=== PATIENT | male | born 1945 | race Caucasian/White ===

== ENCOUNTER 2019-03-22 10:27 | Inpatient (IN) ==
[~2019-03-22 10:27] MED LIST: ETOMIDATE 2 MG/ML 20 ML VIAL IV ONE; fentaNYL citrate 100 MCG/2 ML CARP IV ONE
--- OUTSIDE RECORDS SUMMARY | 2019-03-22 17:40 | External Medical Summary | Continuity of Care Document ---
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) Hyponatremia (276.1) (E87.1) Hypokalemia (276.8) (E87.6) Abnormal glucose level (790.29) (R73.09) Degenerative joint disease (715.90) (M19.90) Mixed hyperlipidemia (272.2) (E78.2) CHF (congestive heart failure) (428.0) (I50.9) Chronic obstructive lung disease (496) (J44.9) Allergies and Adverse Reactions No Known Drug Allergies (Allergy) Medications Incruse Ellipta 62.5 MCG/INH Inhalation Aerosol Powder Breath Activated; INHALE ONE PUFF BY MOUTH ONCE DAILY Carlton Royal Start: 12-Feb-2019 Quantity: 1 30 Inhaler Pack Refills: 3 Ecotrin Low Strength 81 MG Oral Tablet Delayed Release; TAKE 1 TABLET DAILY. Refills: 0 Magnesium Oxide 400 MG Oral Capsule; TAKE DIRECTED. Refills: 0 Metoprolol Tartrate 50 MG Oral Tablet; 3 daily Refills: 0 dilTIAZem HCl ER 120 MG Oral Capsule Ext ended Release 12 Hour; TAKE 1 CAPSULE EVERY DAILY. Refills: 0 Fish Oil 1000 MG Oral Capsule; TAKE 2 CAPSULE DAILY. Quantity: 60 Refills: 0 Furosemide 40 MG Oral Tablet; TAKE 2 TABLETS DAILY. Quantity: 180 Refills: 3 Digoxin 125 MCG Oral Tablet; TAKE 1 TABLET DAILY. Quantity: 30 Refills: 5 Colace 100 MG Oral Capsule Refills: 0 Potassium 99 MG Oral Tablet Refills: 0 Procedures Procedures not documented Immunizations Immunizations not documented Family History Unknown Family Member Family history of malignant neoplasm of Status: Active Comments: Family History esophagus (V16.0) (Z80.0) Family history of coronary artery disease Status: Active Comments: Family History (V17.3) (Z82.49) Family history of MVA (motor vehicle Status: Active Com ments: Family History accident) (E819.9) (V89.2XXA) Father Family history of malignant neoplasm of esophagus (V16 .0) (Z80.0) Status: Active Family history of coronary artery disease (V17.3) (Z82.49) S tatus: Active Sister Family history of coronary artery disease (V17.3) (Z82.49) S tatus: Active Brother Family history of MVA (motor vehicle accident) (E819.9 ) (V89.2XXA) Status: Active Social History - Smoking Status Former smoker Plan of Treatment Planned Observations Planned Goals not documented Results No Known Results Results not documented Encounters Appointment; Smione Royal M.D. 14-Feb-2018 10:45 Encounter Diagnosis: Problem not documented Appointment; Simone Royal M.D. 22-Nov-2017 10:15 Encounter Diagnosis: Problem not documented Appointment; Simone Royal M.D. 16-Aug-2017 10:15 Encounter Diagnosis: Problem not documented Appointment; Simone Royal M.D. 05-Jul-2017 9:15 Encounter Diagnosis: Problem not documented
[2019-03-22] MEDS ORDERED: ICU PROTOCOL FOR HYPERGLYCEMIA PRN (18:33)
[2019-03-22] MEDS ORDERED: PATIENT'S ALLERGY INFO NEEDS ENTERED SCH (18:45)
[2019-03-22] MEDS ORDERED: PATIENT'S HEIGHT AND/OR WEIGHT NEEDED SCH (18:45)
--- NOTE | 2019-03-22 18:49 | History & Physical Report ---
Date of Service March 22, 2019 Assessment & Plan (1) Community acquired pneumonia: Bilateral. Treated with Rocephin and azithromycin from March 19 through today. Then switched to cefepime and vancomycin. Will repeat sputum culture if sputum is produced. Sputum culture at [facility] on March 19 revealed moderate gram-positive cocci in pairs, chains, clusters. Present on Admission?: Yes (2) Acute on chronic respiratory failure: He is requiring high flow oxygen at this time. He currently is on BiPAP 10/5 at 100% oxygen flow and has a saturation of 92%. Consult intensive care/pulmonary medicine. Hold Eliquis in the event that bronchoscopy with biopsy is necessary. Present on Admission?: Yes (3) Atrial fibrillation with RVR: Cardioverted after DERICK at [facility] and now in normal sinus rhythm. Currently on diltiazem and metoprolol to maintain normal sinus rhythm. Present on Admission?: Yes (4) Congestive heart failure: Doubt congestive heart failure at this time. He has received intravenous Lasix and may in fact be volume depleted. Urine is concentrated and he is borderline tachycardic. Judicious IV fluids will be administered and Lasix discontinued at this time Present on Admission?: Yes (5) Hypertension: Prior to hospitalization he was treated at home with amlodipine, metoprolol, diltiazem (6) Interstitial lung disease: Past history of comanaging and smoking. Diffuse interstitial lung disease noted on CT scan (7) COPD exacerbation: Continue with nebulizer treatments and intravenous Solu-Medrol (8) DVT prophylaxis: Lovenox subcu. Hold Eliquis History of Present Illness Chief Complaint: Nonproductive cough, shortness of breath, palpitations Primary Care Provider: KRISTIN Heart 73-year-old male with COPD, chronic respiratory failure, pulmonary fibrosis who was hospitalized at [facility] on December 20 with what appears to be bilateral pneumonia, acute on chronic respiratory failure, atrial fibrillation with rapid ventricular rate. He was cardioverted after DERICK procedure and is now in normal sinus rhythm. He is taking oral diltiazem and metoprolol to maintain normal sinus rhythm. He has been placed on Eliquis which will be discontinued at this time since he may need bronchoscopy with biopsy. Chest CT scan today reveals diffuse emphysema with diffuse alveolar opacities and mediastinal adenopathy. There is no PE. He was treated at [facility] with Rocephin and azithromycin then switched today to cefepime and vancomycin. Sputum culture done at [facility] on March 19 reveals moderate gram-positive cocci in pairs, chains, clusters. Blood cultures are negative. ABG done yesterday reveals pH 7.46, PCO2 42, PO2 58, bicarb 29 on 100% oxygen. He currently is on BiPAP 10/5 at 100% oxygen flow rate with 92% oxygen saturation. Incident Engineer consultation and infectious disease consultation requested Past Med/Surg History Medical History DVT prophylaxis COPD exacerbation (Acute) Interstitial lung disease (Chronic) Hypertension (Chronic) Congestive heart failure (Acute) Atrial fibrillation with RVR (Acute) Acute on chronic respiratory failure (Acute) Community acquired pneumonia (Acute) Review of Systems Review of Systems: All systems reviewed & are unremarkable except as noted in HPI & below Respiratory: + cough, + dyspnea and + wheezing Cardiovascular: + palpitations Physical Exam Constitutional: WD/WN, vitals as above BiPAP in place Eyes: PERRL, conjunctivae normal, anicteric sclerae ENMT: external ear and nose normal, oropharynx normal Neck: trachea midline, no thyromegaly Respiratory: Diffuse bilateral dry rales and scattered rhonchi. Faint end expiratory wheezes. Tachypnea with respiratory rate near 30 at rest Cardiovascular: Rate/Rhythm: regular rate and regular rhythm Heart Sounds: normal S1 and normal S2 Borderline sinus tachycardia. Heart rhythm is regular Gastrointestinal (Abdomen): normal bowel sounds, soft, nontender, no hepatosplenomegaly Musculoskeletal: no cyanosis or clubbing, extremities motor strength 5/5 Skin: no rashes, warm and dry Neurologic: CN's II-XI intact bilaterally and moves all extremities; no focal motor deficits Results & Data Vital Signs (Past 12 Hours) Vital Signs Temp Pulse Resp BP Pulse Ox 03/22/19 18:23 28 H 134/79 03/22/19 17:53 37.0 C 28 H 173/91 H 90 03/22/19 17:45 85 20 94
[2019-03-22] MEDS ORDERED: methylPREDNISolone 40 MG in SYRINGE 0 ML IV SCH (20:00)
[2019-03-22] MEDS ORDERED: VANCOMYCIN CONSULT ACTIVE PRN (20:19)
[2019-03-22] MEDS ORDERED: RAPID SEQUENCE INDUCTION BAG ONE (20:42)
[2019-03-22] MEDS ORDERED: PROPOFOL IV EMULSION 10 MG/ML 100 ML VIAL IV ONE (20:48)
[2019-03-22 20:51] LABS: Creatinine Clr Calc Pharmacy 61.9 ml/min; Est GFR (African American) 80.7; Est GFR (Non-African American) 69.6
[2019-03-22] MEDS ORDERED: FUROSEMIDE 40 MG/4 ML VIAL IV ONE (21:10)
--- NOTE | 2019-03-22 21:11 | Procedure Note ---
Procedure Note Date of Service March 22, 2019 APC: Alfredo Navarrete PA-C. Attending: Dr. Lantigua A time-out was completed verifying correct patient, procedure, site, positioning. Patient was evaluated and required intubation for respiratory failure with hypoxia . Sedative agent used: Propofol Paralysis agent used: None Consent signed and placed on chart per physician supervising procedure. The patient was prepared in the appropriate fashion. Sedation was achieved utilizing Propofol per Dr. Lantigua administration. The patient was easily ventilated using [id number] to achieve adequate oxygenation. An 8.5 Tajik endotracheal tube was placed under direct Glidescope Visualization to 25 cm at the lip. The stylette was removed and balloon was inflated with 10mL of air. Appropriate Colorimetric change was appreciated. Bilateral breath sounds were heard without air sounds in the abdomen. Dr. Lantigua was present for the entire procedure. Post Intubation Chest X-ray confirms placement without pneumothorax. Patient tolerated the procedure well and there were no immediate complications. Coding
[2019-03-22] MEDS ORDERED: fentaNYL citrate 100 MCG/2 ML VIAL IV PRN (21:22)
[2019-03-22] MEDS ORDERED: fentaNYL DRIP 1,250 MCG/250 ML BAG IV STA (21:22)
[2019-03-22] MEDS ORDERED: VANCOMYCIN HCL 1,500 MG in SODIUM CHLORIDE 0.9% 500 ML IV ONE (21:30)
--- NOTE | 2019-03-22 21:35 | XRay Report ---
XR chest 1V portable CLINICAL HISTORY: post intubation and OG placement RESPIRATORY FAILURE COMPARISON STUDY: Outside chest x-ray dated 03/21/2019 FINDINGS: The heart is enlarged. There is mild right paratracheal soft tissue widening. There is an e ndotracheal tube positioned 25 mm above the walter. There is an enteric tube within the stomach. Ther e are extensive diffuse bilateral pulmonary airspace opacities.[ IMPRESSION: 1. Interval placement of endotracheal tube 25 mm above the walter 2. Interval placement of an enteric tube tip of which is positioned within the stomach 3. Persistent extensive bilateral pulmonary airspace opacities 4. Right paratracheal soft tissue prominence, suggestive of adenopathy. Electronically signed by: Crispin Taylor M.D. 03/22/2019 9:33 PM
[2019-03-22] MEDS: LEVALBUTEROL HCL 0.63 MG/3 ML NEB INH SCH ×2 (21:47→23:36)
--- NOTE | 2019-03-22 21:58 | Pharmacy Report ---
Pharmacy Abx Initial Consult - Date of Service March 22, 2019 - Pharmacy Dosing Scope Date of Consult: 03/22/19 Consultation requested by: Dr. Cloud Pharmacy is consulted to continue IV Vancomycin dosing therapy, order appropriate labs and adjust drug dose/frequency. - Subjective The patient is a 73 year old M admitted on 03/22/19 17:36 transferred from [facility]. Patient had been prescribed Rocephin and Zithromax for bilateral Community Acquired Pneumonia at [facility]. He was then changed to Vancomycin & Cefepime when sputum culture resulted with Gram positive cocci. Dr. Cloud admitted patient to the ICU and consulted pharmacy to continue Vancomycin and continued the Cefepime. We could determine the last dose of Cefepime was 1149 and last dose of Vancomycin was at 1230, but could never determine what Vancomycin dose the patient received. Therefore, I ordered a random Vancomycin level which returned at 2025 with level of 8.2 mcg/dl. - Objective Height: 5 ft 6 in Weight: 81.5 kg Vital Signs (Past 12hrs): Vital Signs Temp Pulse Pulse Resp BP Pulse Ox 03/22/19 21:34 85 29 H 99 03/22/19 18:26 103 H 03/22/19 18:23 28 H 134/79 03/22/19 17:53 37.0 C 28 H 173/91 H 90 03/22/19 17:45 85 20 94 Lab Results (24hrs): Laboratory Tests (24 Hours) 03/22/19 03/22/19 20:26 20:25 Creatinine 1.05 Est Cr Clr Drug Dosing 61.9 Random Vancomycin 8.2 Micro Results: Pending MRSA swab - Risk Factors for Resistance * Hospitalization for 48 hours or more within the past 90 days * Antimicrobial use within the last 90 days: zithromax and rocephin - Assessment & Plan Assessment 73 year old M for CAP Plan Vancomycin IV * Estimated PK Parameters: Vd 0.7 L/kg, Mike 0.056 hr-1, t1/2 12.4 hr * modified Loading dose: 1500 mg (18mg/kg) x 1 * Maintenance dose: 1250 mg IV (15 mg/kg) every 14 hours * Goal trough level : 15 to 20 mcg/mL * Trough level ordered prior to 1600 dose on 03/24/19 Pharmacy will continue to follow and will adjust dose/frequency as necessary. Thank you.
[2019-03-22] MEDS: CEFEPIME 1,000 MG in SYRINGE 0 ML IV SCH (22:04)
[2019-03-22] MEDS: SODIUM CHLORIDE 0.9% 1000ML 1,000 ML IV SCH (22:04)
[2019-03-22] MEDS: METOPROLOL TARTRATE 50 MG TAB PO SCH (22:06)
[2019-03-22] MEDS: ENOXAPARIN INJ 40 MG/0.4 ML SYR SQ SCH (22:07)
[2019-03-22] MEDS: FAMOTIDINE 20 MG in SYRINGE 3 ML IV SCH (22:09)
[2019-03-22] MEDS: methylPREDNISolone 60 MG in SYRINGE 0 ML IV SCH (22:09)
--- NOTE | 2019-03-22 22:15 | Procedure Note ---
Procedure Note Date of Service March 22, 2019 Procedure: Arterial Line Placement Attending: Dr. Lantigua APC: Alfredo Navarrete PA-C Indication: Monitoring on Pressors Anesthesia: Lidocaine 1% Consent was signed and placed on the chart prior to procedure. Indication, risks, and benefits were explained at length. A time-out was completed verifying correct patient, procedure, site, positioning, and implant(s) or special equipment if applicable. Allens test was performed to ensure adequate perfusion. Patients RIGHT wrist was prepped and draped in the usual sterile fashion. Ultrasound guidance was used to aid needle placement. A 20g Arrow arterial line was introduced into the RIGHT Radial artery. Catheter was threaded, and the needle was removed with appropriate blood return. Good waveform was observed. The patient tolerated the procedure well. Confirmation of placement with ultrasound. Blood Loss: Minimal Complications: None Procedural Ultrasound Guidance: Procedure Date: 03/22/2019 Indication: Respiratory Failure, Frequent ABGs, Frequent Blood Draws Attending: Dr. Lantigua APC: Alfredo Navarrete PA-C Artery Identified: YES Line confirmed in Artery with ultrasound: YES Complications: NONE Patient tolerated procedure: WELL Coding
--- NOTE | 2019-03-22 22:23 | Critical Care Consultation ---
Date of Consultation March 22, 2019 Assessment & Plan (1) Admitted to intensive care unit: Reason Critically Ill: 73-year-old male with acute on chronic respiratory failure in the setting of likely pulmonary fibrosis with acute ARDS requiring endotracheal intubation for adequate oxygenation. NEURO - * CAM ICU: Unable to assess secondary to current level of required sedation. * Sedation: Propofol gtt * Pain: Fentanyl gtt * Will plan to sedate patient appropriately with plan to progress to paralytics if needed to help control ventilation. CARDIAC/VASCULAR - * NSTEMI: * Elevated troponin in the setting of acute respiratory distress. * Trend troponin. * Check EKG. * Likely secondary to compensation in the setting of poor lungs with ARDS. * A-Fib: * Continue home Rx as tolerated. * Agree with holding anticoagulation at this juncture pending need for further lung evaluation. * HTN: * Continue home Rx as tolerated. * Monitor on telemetry. RESPIRATORY - * Acute on chronic hypoxic respiratory failure: * Initially with concerns for bilateral lower lobe pneumonia with progression to fulminant ARDS. * Failed noninvasive ventilatory techniques --> intubation. * Serial ABGs to gauge weaning down FiO2. * Diurese. * Increase IV Solu-Medrol to 60mg IV q6H. * Currently covered w/ Cefepime/Vanc. * Nebs as scheduled. GI/NUTRITION - * OG in place. * NPO * Prophylaxis: Famotadine RENAL/LYTES - * No significant electrolyte derangements. * Will continue to monitor lytes - replace appropriately. * IVF: NSS@80mL/hr - * Judd in place - Strict I&Os. ENDO - * No h/o DM or Thyroid Dz * BSGs per unit protocol. ISS --> gtt per unit policy. HEME - * Stable H&H * Continue to trend ID - * Bilateral Lower Lobe Pneumonia: * Previously on Rocephin/Azithromycin. * Changed to Cefepime/Vanc as condition declined. Agree with continuing at this point. * ProCal >18. Will repeat. LINES/IV ACCESS - * PIVs x2 * RIGHT Radial Art Line * ET Tube * Ujdd DVT PROPHYLAXIS - * Lovenox * SCDs I have personally spent 45 minutes of critical care time in the direct management of this patient. This is a life/limb threatening event. This includes time spent evaluating patient, direct bedside care, chart review, placing orders, interpretation of diagnostic studies, discussion with consultants, patient, and family members, as well as other required patient management activities. This time is exclusive of all separately billable procedures, and teaching time and separate from and in addition to any other critical care service time. Thank you for allowing us to participate in the care of this patient. Please refer to my attending physician's documentation for any further recommendations. (2) Acute and chronic respiratory failure with hypoxia: (3) Interstitial lung disease: (4) Hypertension: (5) Congestive heart failure: (6) Atrial fibrillation with RVR: (7) Community acquired pneumonia: (8) ARDS (adult respiratory distress syndrome): History of Present Illness Attending Physician: Colt Cloud MD Patient is a 73-year-old male with significant past medical history of interstitial pulmonary fibrosis, A. fib, CHF, and hypertension who initially was admitted to the [facility] with concerns of bilateral lower lobe pneumonia. He was initially placed on Rocephin and azithromycin which was subsequently switched to cefepime and vancomycin today. He had progression of his shortness of breath requiring BiPAP for ventilatory support. Despite 100% FiO2, his PO2 remained in the 50s to 60s. Patient was transferred to this facility for further evaluation and management. In conversation with the patient's , she reports that he previously had undergone evaluation for interstitial lung disease. He has not seen a metal off bearer in the last 2 years. He has been intubated on 2 separate occasions (5 years ago and 2 years ago) for similar episodes of shortness of breath and hypoxia. Currently, the patient has not pursued further pulmonary evaluation or assessment for possible transplantation. Currently, the patient complains shortness of breath, but offers no other complaints at this time. Allergies Allergy/AdvReac Type Severity Reaction Status Date / Time No Known Allergies Allergy Verified 03/22/19 20:11 Home Medications Home Medications Medication Instructions Recorded Confirmed Type aspirin 03/22/19 History digoxin [Digox] 03/22/19 History diltiazem HCl DAILY 03/22/19 History furosemide BID 03/22/19 History magnesium oxide 03/22/19 History metoprolol tartrate TID 03/22/19 History terazosin HS 03/22/19 History umeclidinium [Incruse Ellipta] 03/22/19 History Patient History Medical History DVT prophylaxis COPD exacerbation (Acute) Interstitial lung disease (Chronic) Hypertension (Chronic) Congestive heart failure (Acute) Atrial fibrillation with RVR (Acute) Acute on chronic respiratory failure (Acute) Community acquired pneumonia (Acute) Arthritis Coronary artery disease Hyperlipidemia Obstructive sleep apnea Pneumonia Pulmonary artery hypertension Pulmonary fibrosis Family History Other Family history non-contributory Social History Preferred Language: Citizen Of [place] Communication Ability: Unable 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 All else were negative. Physical Exam Physical Exam: VITAL SIGNS - Vital signs and nursing notes were reviewed. GENERAL - 73-year-old male appearing his stated age who is in mild respiratory distress. Communicates well with provider and answers questions appropriately. SKIN - Without rashes. HEAD - NC/AT. EYES - PERRL with EOMI bilaterally. Sclera anicteric. EARS - No deformities of external structures noted on gross examination bilaterally. NOSE - Midline and without cyanosis. No epistaxis or purulent drainage noted. MOUTH/OROPHARYNX - Without perioral cyanosis. Buccal mucosa pink and dry. Tongue midline with equal elevation of palate bilaterally. NECK - Neck with FROM. Supple to palpation. No lymphadenopathy noted. No nuchal rigidity. LUNGS - Chest wall symmetric without accessory muscle use, intercostals retrac tions, or central cyanosis. Normal vesicular breath sounds CTA B/L. No wheezes, rales, or rhonchi appreciated. CARDIAC - RRR with S1/S2. No murmur, rubs, or gallops appreciated. ABDOMEN - Abdominal contour flat without pulsations or visible masses. BS normoactive all four quadrants. No tenderness, palpable masses, hepatosplenomegaly, or ascites noted. EXTREMITIES - No clubbing or peripheral cyanosis. No pretibial edema present. +3/5 radial and dorsalis pedis pulses palpated throughout. +5/5 strength noted in UE/LE bilaterally. NEUROLOGIC - Cranial nerves II through XII grossly intact. Sensory intact to light touch throughout. PSYCH - A&Ox3 and cooperates fully with examiner. Pt is very pleasant and interacts well with examiner. Results & Data Vital Signs (Past 12 Hours) Vital Signs Temp Pulse Pulse Resp BP Pulse Ox 03/22/19 21:34 85 29 H 99 03/22/19 18:26 103 H 03/22/19 18:23 28 H 134/79 03/22/19 17:53 37.0 C 28 H 173/91 H 90 03/22/19 17:45 85 20 94
[2019-03-23 00:04] LABS: Hematocrit (blood only) 34.7 % (42-52); Hemoglobin 11.7 g/dL (14.0-18.0); Immature Granulocytes # (auto) 0.06 K/uL (0.00-0.02); Immature Granulocytes % (auto) 0.4 %; Lymphocytes # (auto) 0.43 K/uL (1.2-3.4); Lymphocytes % (auto) 2.8 %; Mean Corpuscular Hgb Conc 33.7 g/dL (32-36); Mean Corpuscular Volume 102.7 fL (80-100); Mean Platelet Volume 8.5 fL (7.4-10.4); Monocytes # (auto) 0.59 K/uL (0.11-0.59); Monocytes % (auto) 3.9 %; Neutrophils # (auto) 14.02 K/uL (1.4-6.5); Neutrophils % (auto) 92.9 %; Platelet Count 126 K/uL (130-400); RDW Coefficient of Variation 13.5 % (11.5-14.5); Red Blood Count 3.38 M/uL (4.7-6.1)
[2019-03-23 00:26] LABS: Albumin Level 3.1 gm/dl (3.4-5.0); BUN Creatinine Ratio 32.7 (10-20); Calcium 8.4 mg/dl (8.5-10.1); Creatinine Clr Calc Pharmacy 69.9 ml/min; Est GFR (African American) 93.4; Est GFR (Non-African American) 80.6; Magnesium 2.8 mg/dl (1.8-2.4)
[2019-03-23] MEDS: PROPOFOL 1,000 MG/100 ML VIAL IV PRN ×4 (00:26→22:57)
[2019-03-23 00:38] LABS: Bilirubin Direct 1.1 mg/dl (0-0.2); Bilirubin,Total 2.2 mg/dl (0.2-1); Phosphorus 4.9 mg/dl (2.5-4.9); Total Protein 6.2 gm/dl (6.4-8.2); Troponin I 0.056 ng/ml (0-0.045)
[2019-03-23 00:41] LABS: iSTAT Arterial Blood Gas HCO3 36 meg/L (19-24); iSTAT Carbon Dioxide 38 mEq/l (24-31); iSTAT FiO2 100 %; iSTAT Site Art Line
[2019-03-23] MEDS: LEVALBUTEROL HCL 0.63 MG/3 ML NEB INH SCH ×6 (03:39→23:13)
[2019-03-23] MEDS: CEFEPIME 1,000 MG in SYRINGE 0 ML IV SCH ×3 (04:01→19:39)
[2019-03-23] MEDS: methylPREDNISolone 60 MG in SYRINGE 0 ML IV SCH ×4 (04:01→22:18)
[2019-03-23 04:39] LABS: Hematocrit (blood only) 34.1 % (42-52); Hemoglobin 11.5 g/dL (14.0-18.0); Immature Granulocytes # (auto) 0.04 K/uL (0.00-0.02); Immature Granulocytes % (auto) 0.3 %; Lymphocytes # (auto) 0.33 K/uL (1.2-3.4); Lymphocytes % (auto) 2.8 %; Mean Corpuscular Hgb Conc 33.7 g/dL (32-36); Mean Corpuscular Volume 103.3 fL (80-100); Mean Platelet Volume 8.4 fL (7.4-10.4); Monocytes # (auto) 0.49 K/uL (0.11-0.59); Monocytes % (auto) 4.2 %; Neutrophils # (auto) 10.88 K/uL (1.4-6.5); Neutrophils % (auto) 92.7 %; Platelet Count 106 K/uL (130-400); RDW Coefficient of Variation 13.5 % (11.5-14.5); RDW Standard Deviation 50.8 fL (36.4-46.3); White Blood Count 11.74 K/uL (4.8-10.8)
[2019-03-23 04:57] LABS: BUN Creatinine Ratio 34.5 (10-20); Calcium 8.3 mg/dl (8.5-10.1); Creatinine Clr Calc Pharmacy 63.1 ml/min; Est GFR (African American) 82.6; Est GFR (Non-African American) 71.2; Potassium 4.3 mmol/L (3.5-5.1)
[2019-03-23 05:02] LABS: Phosphorus 4.9 mg/dl (2.5-4.9); Troponin I 0.033 ng/ml (0-0.045)
[2019-03-23 05:46] LABS: iSTAT Allen Test Pass; iSTAT Arterial Blood Gas HCO3 35 meg/L (19-24); iSTAT Carbon Dioxide 37 mEq/l (24-31); iSTAT FiO2 90 %; iSTAT Site Art Line
--- NOTE | 2019-03-23 07:03 | XRay Report ---
XR chest 1V portable CLINICAL HISTORY: f/u dyspnea COMPARISON STUDY: 03/22/2019 FINDINGS: Endotracheal tube is at the origin of the right mainstem bronchus and/or inferior walter. T his should be pulled back several centimeters. Diffuse bilateral parenchymal infiltrative changes versus components of pulmonary edema are similar. Diaphragms are smooth. IMPRESSION: 1. Unchanging diffuse bilateral parenchymal infiltrative and or pulmonary edematous change. 2. Endotracheal tube is at the inferior walter and origin right main stem bronchus and should be pull ed back several centimeters. 3. Nasogastric tube within the stomach. The above report was generated using voice recognition software. It may contain grammatical, syntax or spelling errors. Electronically signed by: Marcin Venegas M.D. 03/23/2019 7:01 AM
--- NOTE | 2019-03-23 07:41 | Hospitalist Progress Note ---
Date of Service March 23, 2019 Assessment & Plan (1) Community acquired pneumonia: Bilateral. Treated with Rocephin and azithromycin from March 19 through today. Then switched to cefepime and vancomycin. Sputum culture at [facility] on March 19 revealed moderate gram-positive cocci in pairs, chains, clusters. Many infectious disease recommends re-adding azithromycin for atypical coverage (2) Acute on chronic respiratory failure: Patient is intubated and ventilated, hold Eliquis in the event that bronchoscopy with biopsy is necessary. (3) Atrial fibrillation with RVR: Cardioverted after DERICK at [facility] and now in normal sinus rhythm. Currently on diltiazem and metoprolol to maintain normal sinus rhythm. 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 Diffuse interstitial lung disease noted on CT scan (7) COPD exacerbation: Bronchodilators and intravenous Solu-Medrol (8) DVT prophylaxis: Lovenox subcu. Hold Eliquis Subjective Patient is sedated and ventilated he does open his eyes to his name he can move his hands and squeeze to command but he falls easily back to sleep Review of Systems Review of Systems: Unobtainable due to endotracheal tube Physical Exam Physical Exam: The patient appeared morbidly well supported by ventilator Vital signs as documented. Head exam is unremarkable. normocephalic, atraumatic Neck is trach is midline no, thyromegaly, or lymphademopathy Lungs are coarse with rales bilaterally Cardiac exam reveals Rhythm is regular. First and second heart sounds normal. Abdominal exam reveals hypoactive bowel sounds, no masses, no organomegaly Extremities are nonedematous and both pedal pulses are present Skin is warm / Dry Results & Data Vital Signs (Past 12 Hours) Vital Signs Temp Pulse Pulse Pulse Resp BP BP 03/23/19 07:23 65 25 H 03/23/19 05:51 62 28 H 03/23/19 05:00 59 L 110/60 03/23/19 04:00 36.5 C 58 L 111/64 03/23/19 03:45 60 27 H 03/23/19 03:00 58 L 99/66 L 03/23/19 02:00 60 105/63 03/23/19 01:00 60 101/64 03/23/19 00:30 59 L 03/23/19 00:00 36.7 C 60 105/66 03/22/19 23:48 62 62 28 H 03/22/19 23:00 62 93/61 L 03/22/19 22:00 83 83 20 96/66 L 03/22/19 21:34 85 29 H 03/22/19 21:00 83 24 130/74 03/22/19 20:00 36.9 C 97 H 20 156/80 H BP Pulse Ox 03/23/19 07:23 95 03/23/19 05:51 98 03/23/19 05:00 98 03/23/19 04:00 97 03/23/19 03:45 98 03/23/19 03:00 98 03/23/19 02:00 97 03/23/19 01:00 96 03/23/19 00:30 98 03/23/19 00:00 96 03/22/19 23:48 97 03/22/19 23:00 98 03/22/19 22:00 99/83 L 99 03/22/19 21:34 99 03/22/19 21:00 75 L 03/22/19 20:00 86 L
[2019-03-23] MEDS ORDERED: ASPIRIN 81 MG ECTAB PO SCH (09:00)
[2019-03-23] MEDS ORDERED: dilTIAZem HCL 240 MG CAPCR PO SCH (09:00)
[2019-03-23 10:07] LABS: iSTAT Allen Test Pass; iSTAT Arterial Blood Gas HCO3 33 meg/L (19-24); iSTAT Carbon Dioxide 34 mEq/l (24-31); iSTAT Site R Radial
[2019-03-23] MEDS: ASPIRIN 81 MG CHEW GT SCH (10:09)
[2019-03-23] MEDS: dilTIAZem HCl 60 MG TAB PO SCH ×4 (10:09→23:51)
--- NOTE | 2019-03-23 10:09 | Infectious Disease Consult ---
Date of Consultation March 23, 2019 Assessment & Plan (1) ARDS (adult respiratory distress syndrome): continue abx for now, if able repeat sputum culture. will check legionella antigen. suggest restart azithro for atypical coverage. History of Present Illness Attending Physician: Juice Whalen MD pt transferred from [facility] due to worsening resp status, development of ARDS. Now intubated, sedated on vent, unable to obtain ros. has been afebrile since admission. was initially admitted on 03/19 - placed on ctx and azithro, now broadened to vanco and cefepime. mrsa swab negative. sputum culture from [facility] reported gpc, blood cultures negative. no new micro. cxr with b/l infiltrates. pt tolerating abx. wbc 15 on arrival, improved to 11 today. has h/o pulm fibrosis, per chart has not had followup for this. placed on IV steriods upon admission. Allergies Allergy/AdvReac Type Severity Reaction Status Date / Time No Known Allergies Allergy Verified 03/22/19 20:11 Home Medications Home Medications Medication Instructions Recorded Confirmed Type aspirin 03/22/19 History digoxin [Digox] 03/22/19 History diltiazem HCl DAILY 03/22/19 History furosemide BID 03/22/19 History magnesium oxide 03/22/19 History metoprolol tartrate TID 03/22/19 History terazosin HS 03/22/19 History umeclidinium [Incruse Ellipta] 03/22/19 History Patient History Medical History DVT prophylaxis COPD exacerbation (Acute) Interstitial lung disease (Chronic) Hypertension (Chronic) Congestive heart failure (Acute) Atrial fibrillation with RVR (Acute) Acute on chronic respiratory failure (Acute) Community acquired pneumonia (Acute) Arthritis Coronary artery disease Hyperlipidemia Obstructive sleep apnea Pneumonia Pulmonary artery hypertension Pulmonary fibrosis Family History Other Family history non-contributory Social History Preferred Language: Filipino 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 Beliefs That Will Affect Care: None Current Living Situation: Spouse and Family Current Living Situation Comment: Lives with spouse in finished basement of daughter's house Other Information That Helps Us Care for You: No Feels Safe at Home: Yes Safety Concerns: Feels Safe At This Time Smoking Status: Former smoker Hx Alcohol Use: No Hx Substance Use: No Review of Systems Review of Systems: Unobtainable due to endotracheal tube Physical Exam Constitutional: WD/WN, vitals as above ENMT: intubated, ogt in place Neck: normal visual inspection Respiratory: Auscultation: lungs clear to auscultation bilaterally Cardiovascular: RRR, no murmur, no edema Gastrointestinal (Abdomen): Inspection/Auscultation: abdomen normal to inspection; abdomen not distended Percussion/Palpation: abdomen soft Musculoskeletal: Head/Neck/Chest: normocephalic and head atraumatic Extremities: extremities normal to inspection Skin: no rashes, warm and dry Psychiatric: sedated on vent Results & Data Vital Signs (Past 12 Hours) Vital Signs Temp Pulse Pulse Resp BP Pulse Ox 03/23/19 07:23 65 25 H 95 03/23/19 05:51 62 28 H 98 03/23/19 05:00 59 L 110/60 98 03/23/19 04:00 36.5 C 58 L 111/64 97 03/23/19 03:45 60 27 H 98 03/23/19 03:00 58 L 99/66 L 98 03/23/19 02:00 60 105/63 97 03/23/19 01:00 60 101/64 96 03/23/19 00:30 59 L 98 03/23/19 00:00 36.7 C 60 105/66 96 03/22/19 23:48 62 62 28 H 97 03/22/19 23:00 62 93/61 L 98
[2019-03-23] MEDS: METOPROLOL TARTRATE 50 MG TAB PO SCH ×3 (10:10→22:19)
[2019-03-23] MEDS: SODIUM CHLORIDE 0.9% 1000ML 1,000 ML IV SCH ×2 (10:11→22:19)
[2019-03-23] MEDS: FAMOTIDINE 20 MG in SYRINGE 3 ML IV SCH ×2 (10:11→22:18)
--- NOTE | 2019-03-23 10:41 | Pharmacy Report ---
Pharmacy Abx Dose Short Note - Date of Service March 23, 2019 - Assessment & Plan Assessment * 73 year old M receiving VANCOMYCIN + CEFEPIME for treatment of CAP/COPD exacerbation with worsening resp failure despite CEFTRIAXONE/AZITHROMYCIN at [facility]. * I did contact [facility] this AM to inquire about sputum cx collected there. Originally they had reported GPC growing in this cx however upon speaking with Sondra in the Micro dept there, the cx has resulted as moderate normal rinku. She also reported that the BLCXs that had been collected there remain negative 4 days after collection. * MRSA nasal swab was performed here and is negative, lessening likelihood of MRSA pneumonia * Pt remains intubated this AM, VSS and MAPs currently > 65 * SCr stable however UOP less than 0.5mL/kg/hr this AM but he is still receiving NS @80cc/hr * ID is consulted and currently recommends continued vanco + cefepime, with addition of azithromycin for atypical coverage Plan Vancomycin * 1500mg dose given last evening in response to subtherapeutic random level drawn yesterday (pt had received unknown dose of vancomycin prior to transfer) * Maint dose: 1250mg (~15mg/kg) Q 14 hrs ordered last evening * Goal trough level for pulm infxn : 15 to 20 mcg/mL * P'kinetic estimates: Vd 0.7L/kg, half-life ~12-13 hrs * Will check SCr later this evening if UOP remains low. If UOP and SCr indicate decline in renal fxn a longer dosing interval may be required. Cefepime (pharmacy is consulted to dose Cefepime) * currently receiving 1gm IV Q 8 hrs, however given eCrCl and severity of illness a dose of 2gm Q 8 hrs could also be considered Pharmacy will continue to follow and will adjust dose/frequency as necessary. Thank you.
[2019-03-23 11:35] LABS: Patient Temperature 36.8; iSTAT Art Bld Gas pCO2 Correct 48 mmHg (35-46); iSTAT Art Bld Gas pH Corrected 7.446 (7.35-7.45); iSTAT Arterial Blood Gas pCO2 48 mmHg (35-46); iSTAT Arterial Blood Gas pH 7.44 (7.35-7.45)
[2019-03-23 11:56] LABS: iSTAT Arterial Blood Gas pH 7.33 (7.35-7.45)
[2019-03-23 11:57] LABS: iSTAT Art Bld Gas pCO2 Correct 67 mmHg (35-46); iSTAT Art Bld Gas pH Corrected 7.337 (7.35-7.45); iSTAT Arterial Blood Gas pCO2 67 mmHg (35-46)
[2019-03-23 12:06] LABS: iSTAT Art Bld Gas pCO2 Correct 64 mmHg (35-46); iSTAT Art Bld Gas pH Corrected 7.341 (7.35-7.45); iSTAT Arterial Blood Gas pCO2 66 mmHg (35-46); iSTAT Arterial Blood Gas pH 7.33 (7.35-7.45)
[2019-03-23] MEDS: VANCOMYCIN HCL 1,250 MG in SODIUM CHLORIDE 0.9% 250 ML IV SCH (12:30)
[2019-03-23] MEDS: PEPTAMEN INTENSE VHP 1.0 CAL 1,000 ML BAG OG SCH (12:54)
--- NOTE | 2019-03-23 15:06 | Critical Care Progress Note ---
Date of Service March 23, 2019 Assessment & Plan (1) Admitted to intensive care unit: 73-year-old male with acute on chronic respiratory failure in the setting of likely pulmonary fibrosis with acute ARDS requiring endotracheal intubation for adequate oxygenation. NEURO - * Sedation: Propofol gtt * Pain: Fentanyl gtt CARDIAC/VASCULAR - * NSTEMI: * Elevated troponin in the setting of acute respiratory distress. * Trend troponin. * Check EKG. * Likely secondary to compensation in the setting of poor lungs with ARDS. * A-Fib: * currently in A fib continue diltiazem but since through an NG will use 60 mg Q 60 of the immediate release * holding anticoagulation given hemoptysis * Monitor on telemetry. RESPIRATORY - * Acute on chronic hypoxic respiratory failure: * concerns for bilateral lower lobe pneumonia with progression to fulminant ARDS. * Failed noninvasive ventilatory techniques --> intubation. * Serial ABGs to gauge weaning down FiO2. * Diurese. * Increase IV Solu-Medrol to 60mg IV q6H. * Currently covered w/ Cefepime/Vanc. and will add doxycycline for atypical coverage * Nebs Q6 GI/NUTRITION - * OG in place. * start feeds * Prophylaxis: Famotadine RENAL/LYTES / * No significant electrolyte derangements. * Will continue to monitor lytes - replace appropriately. * IVF: NSS@80mL/hr * monitor UO and maintain >0.5ml/Kg BW-hr * Judd in place - Strict I&Os. ENDO - * No h/o DM or Thyroid Dz * BSGs per unit protocol. ISS --> gtt per unit policy. HEME - * Stable H&H * Continue to trend ID - * Bilateral Lower Lobe Pneumonia: * Previously on Rocephin/Azithromycin. * Changed to Cefepime/Vanc as condition declined. Agree with continuing at this point. * ProCal >18. Will repeat. LINES/IV ACCESS - * PIVs x2 * RIGHT Radial Art Line * ET Tube * Judd DVT PROPHYLAXIS - * Lovenox * SCDs I have personally spent 50 minutes of critical care time in the direct management of this patient. (2) Acute and chronic respiratory failure with hypoxia: (3) Interstitial lung disease: (4) Hypertension: (5) Congestive heart failure: (6) Atrial fibrillation with RVR: (7) Community acquired pneumonia: (8) ARDS (adult respiratory distress syndrome): Subjective Patient is reported to have ILD but non specified. It seems he has had pneumonia and was intubated in the past. According to records from [facility] he started having symptoms of palpitation and SOB around 03/17/19 and sought care with them on 03/19. He was found to be in A Fib RVR and needed cardioversion and anticoagulation. lung imaging there reported pneumonia and he was started on CA pneumonia regimen of ceftriaxone and zithromax. Images from [facility] are not yet available to me but I saw 2 shots texted on phone without IDentification (HIPPA) which really speak for ARDS. When we intubated him he had excessive blood in his airway. The intubation was atraumatic and this would qualify as heoptysis (it is unclear to me whether he had pneumonia which precipitates A fib which presipitated pulmonary edema and that would manifest as frothy bloody fluid. Alternatively this would be A fib with pulm edema. He has procalcitonin of 19 so there is likely an infection. We sent connective tissue studies. Patient arrived on 100% FiO2 on the BIPAP and as such there was no reserves. He was electively intubated and is in severe ARDS. His O2 requirements improved since. He is sedated but arouable and denies pain headache or SOB. Physical Exam Constitutional: not in acute distress but intubated and sedated Eyes: PERRL, conjunctivae normal, anicteric sclerae Neck: trachea midline, no thyromegaly Respiratory: Auscultation: + rales and + rhonchi Cardiovascular: Rate/Rhythm: regular rate and regular rhythm Heart Sounds: normal S1 and normal S2 Gastrointestinal (Abdomen): normal bowel sounds, soft, nontender, no hepatosplenomegaly Musculoskeletal: no cyanosis or clubbing, extremities motor strength 5/5 Results & Data Vital Signs (Past 12 Hours) Vital Signs Temp Pulse Resp BP Pulse Ox 03/23/19 12:00 68 120/61 92 03/23/19 11:27 59 L 28 H 92 03/23/19 11:01 58 L 122/59 L 92 03/23/19 10:00 67 130/66 97 03/23/19 09:00 65 120/66 96 03/23/19 08:00 64 127/68 95 03/23/19 07:23 65 25 H 95 03/23/19 07:00 37.0 C 65 136/66 96 03/23/19 05:51 62 28 H 98 03/23/19 05:00 59 L 110/60 98 03/23/19 04:00 36.5 C 58 L 111/64 97 03/23/19 03:45 60 27 H 98 03/23/19 03:00 58 L 99/66 L 98
[2019-03-23] MEDS: DOXYCYCLINE HYCLATE 100 MG in DEXTROSE 5% 100 ML IV SCH (15:53)
[2019-03-23] MEDS ORDERED: DOXYCYCLINE CALCIUM PO SCH (21:00)
[2019-03-23] MEDS: ENOXAPARIN INJ 40 MG/0.4 ML SYR SQ SCH (22:18)
[2019-03-23] MEDS ORDERED: fentaNYL citrate 100 MCG/2 ML VIAL IV PRN (23:47)
[2019-03-24] MEDS: VANCOMYCIN HCL 1,250 MG in SODIUM CHLORIDE 0.9% 250 ML IV SCH ×2 (01:30→16:04)
[2019-03-24] MEDS: DOXYCYCLINE HYCLATE 100 MG in DEXTROSE 5% 100 ML IV SCH ×2 (03:50→15:16)
[2019-03-24] MEDS: CEFEPIME 1,000 MG in SYRINGE 0 ML IV SCH ×3 (03:51→20:58)
[2019-03-24] MEDS: methylPREDNISolone 60 MG in SYRINGE 0 ML IV SCH ×3 (03:52→21:00)
[2019-03-24] MEDS: LEVALBUTEROL HCL 0.63 MG/3 ML NEB INH SCH ×6 (04:05→23:06)
[2019-03-24] MEDS: PROPOFOL 1,000 MG/100 ML VIAL IV PRN ×5 (04:17→22:04)
[2019-03-24] MEDS: fentaNYL DRIP 1,250 MCG/250 ML BAG IV PRN ×2 (04:20→10:10)
[2019-03-24 04:42] LABS: Hematocrit (blood only) 35.8 % (42-52); Hemoglobin 11.5 g/dL (14.0-18.0); Immature Granulocytes # (auto) 0.02 K/uL (0.00-0.02); Immature Granulocytes % (auto) 0.3 %; Lymphocytes # (auto) 0.29 K/uL (1.2-3.4); Lymphocytes % (auto) 4.1 %; Mean Corpuscular Hgb Conc 32.1 g/dL (32-36); Mean Corpuscular Volume 106.2 fL (80-100); Mean Platelet Volume 8.5 fL (7.4-10.4); Monocytes # (auto) 0.49 K/uL (0.11-0.59); Neutrophils % (auto) 88.6 %; Platelet Count 113 K/uL (130-400); RDW Coefficient of Variation 13.2 % (11.5-14.5); RDW Standard Deviation 51.4 fL (36.4-46.3); Red Blood Count 3.37 M/uL (4.7-6.1)
[2019-03-24 05:01] LABS: BUN Creatinine Ratio 49.4 (10-20); Calcium 8.6 mg/dl (8.5-10.1); Creatinine Clr Calc Pharmacy 79.5 ml/min; Est GFR (Non-African American) 87.1; Magnesium 2.9 mg/dl (1.8-2.4); Potassium 4.4 mmol/L (3.5-5.1)
[2019-03-24 05:21] LABS: Phosphorus 3.4 mg/dl (2.5-4.9)
[2019-03-24] MEDS: dilTIAZem HCl 60 MG TAB PO SCH ×4 (05:47→23:37)
[2019-03-24 06:19] LABS: iSTAT Allen Test Pass; iSTAT Arterial Blood Gas HCO3 33 meg/L (19-24); iSTAT Carbon Dioxide 35 mEq/l (24-31); iSTAT FiO2 80 %; iSTAT Site Art Line
--- NOTE | 2019-03-24 07:25 | XRay Report ---
XR chest 1V portable CLINICAL HISTORY: Respiratory failure COMPARISON STUDY: 03/23/2019 FINDINGS: The heart is enlarged. There is an endotracheal tube 27 mm above the walter. There is a renato ogastric tube within the stomach. There are extensive diffuse bilateral pulmonary airspace opacities. There is persistent right paratracheal soft tissue prominence suggestive of adenopathy.[ IMPRESSION: 1. Cardiomegaly and persistent extensive bilateral pulmonary airspace opacities Electronically signed by: Crispin Taylor M.D. 03/24/2019 7:24 AM
[2019-03-24] MEDS: ASPIRIN 81 MG CHEW GT SCH (07:32)
[2019-03-24] MEDS: METOPROLOL TARTRATE 50 MG TAB PO SCH ×3 (07:32→20:58)
[2019-03-24] MEDS: SODIUM CHLORIDE 0.9% 1000ML 1,000 ML IV SCH (07:32)
[2019-03-24] MEDS: FAMOTIDINE 20 MG in SYRINGE 3 ML IV SCH ×2 (07:55→21:00)
[2019-03-24] MEDS ORDERED: PHARMACY GLYCEMIC MGMT CONSULT SCH (12:03)
[2019-03-24] MEDS ORDERED: GLUCAGON FOR INJ 1 MG VIAL SQ PRN (12:15)
[2019-03-24] MEDS ORDERED: GLUCOSE 40% GEL 15 GM TUBE PO PRN (12:15)
[2019-03-24] MEDS ORDERED: DEXTROSE 50% 50 ML SYRINGE IV PRN (12:15)
[2019-03-24] MEDS ORDERED: CARBOHYDRATES FOR HYPOGLYCEMIA PO PRN (12:15)
[2019-03-24] MEDS ORDERED: GLUCOSE 10 TABS/TUBE PO PRN (12:15)
[2019-03-24] MEDS: INSULIN ASPART 100 UNITS/ML 3 ML PEN SC SCH ×2 (12:45→17:28)
--- NOTE | 2019-03-24 13:46 | Critical Care Progress Note ---
Date of Service March 24, 2019 Assessment & Plan (1) Admitted to intensive care unit: 73-year-old male with acute on chronic respiratory failure in the setting of likely pulmonary fibrosis with acute ARDS requiring endotracheal intubation for adequate oxygenation. NEURO - * Sedation: Propofol gtt * Pain: Fentanyl gtt CARDIAC/VASCULAR - * NSTEMI: * Elevated troponin in the setting of acute respiratory distress. * Likely secondary to compensation in the setting of poor lungs with ARDS. * A-Fib: * currently in SR continue diltiazem but since through an NG will use 60 mg Q 60 of the immediate release * holding anticoagulation given hemoptysis * Monitor on telemetry. RESPIRATORY - * Acute on chronic hypoxic respiratory failure: * concerns for bilateral lower lobe pneumonia with progression to fulminant ARDS. * Serial ABGs to gauge weaning down FiO2. Down to 60% FiO2. He is retaining C O2 to 58 wiht normal PH it seems he has baseline hypercapnia. Increaed his IPAP to 15 and EPAP kept at 8. * Diurese gently to maintain 0 balance * TAPER IV Solu-Medrol to 60mg IV q6H TO 60 q12 * Currently covered w/ Cefepime/Vanc. and will add doxycycline for atypical coverage * Nebs Q6 GI/NUTRITION - * OG in place. * ONGOING feeds * Prophylaxis: Famotadine RENAL/LYTES / * No significant electrolyte derangements. * Will continue to monitor lytes - replace appropriately. * IVF: NSS@20mL/hr. hE IS 2.138 LITERS POSITIVE SINCE ADMISSION * monitor UO and maintain >0.5ml/Kg BW-hr * Judd in place - Strict I&Os. ENDO - * No h/o DM or Thyroid Dz * BSGs per unit protocol. ISS --> gtt per unit policy. HEME - * Stable H&H * OBTAIN DAILY ID - * Bilateral Lower Lobe Pneumonia: * Previously on Rocephin/Azithromycin. * Changed to Cefepime/Vanc as condition declineD AND ADDED DOXYCYCLIN. aPPRECIATE ID consult * ProCal >18. LINES/IV ACCESS - * PIVs x2 * RIGHT Radial Art Line * ET Tube * Judd DVT PROPHYLAXIS - * Lovenox * SCDs I have personally spent 45 minutes of critical care time in the direct management of this patient. (2) Acute and chronic respiratory failure with hypoxia: (3) Interstitial lung disease: (4) Hypertension: (5) Congestive heart failure: (6) Atrial fibrillation with RVR: (7) Community acquired pneumonia: (8) ARDS (adult respiratory distress syndrome): Subjective The patient remains on MV but his FiO2 is nicely coming down to 60% with a saturation >92%. The was at the bedside. She says their 50th anniversary is on April 06. 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 He is sedated but is arousable and when aroused indicated no pain or discomfort. Physical Exam Eyes: PERRL, conjunctivae normal, anicteric sclerae Neck: trachea midline, no thyromegaly Respiratory: Auscultation: + rales and + rhonchi Cardiovascular: Rate/Rhythm: regular rate and regular rhythm Heart Sounds: normal S1 and normal S2 Gastrointestinal (Abdomen): normal bowel sounds, soft, nontender, no hepatosplenomegaly Musculoskeletal: no cyanosis or clubbing, extremities motor strength 5/5 Results & Data Vital Signs (Past 12 Hours) Vital Signs Temp Pulse Pulse Resp BP Pulse Ox 03/24/19 13:01 67 150/72 H 93 03/24/19 12:01 36.8 C 67 24 129/65 94 03/24/19 12:00 59 L 03/24/19 11:45 59 L 59 L 25 H 96 03/24/19 11:01 60 26 H 142/73 H 97 03/24/19 10:01 36.8 C 71 26 H 126/59 L 96 03/24/19 09:01 59 L 24 128/65 95 03/24/19 08:01 36.6 C 62 26 H 141/66 H 95 03/24/19 08:00 63 03/24/19 07:39 65 25 H 95 03/24/19 07:01 64 26 H 123/70 95 03/24/19 06:00 61 98 03/24/19 05:20 62 25 H 98 03/24/19 05:00 62 20 135/69 98 03/24/19 04:10 64 23 98 03/24/19 04:00 36.5 C 58 L 135/73 98 03/24/19 03:00 62 139/75 98 03/24/19 02:00 63 140/78 97 Critical Care Time Critical Care Time: Yes Total Critical Care Time: 45 45 min
[2019-03-24] MEDS ORDERED: FUROSEMIDE 20 MG in SYRINGE 0 ML IV ONE (14:30)
--- NOTE | 2019-03-24 14:47 | Pharmacy Report ---
Glycemic Control Consultation - Date of Service March 24, 2019 - Scope Scope: Glycemic Pharmacist consulted per ICU Hyperglycemia protocol on 03/24/19 for glycemic control and to write orders per [facility] inpatient glycemic control protocol - Objective Weight: 83 kg Accuchecks BSG (last 24hrs): 03/23/19 03/24/19 03/24/19 18:31 04:18 11:40 Glucose 174 H POC Glucose 165 H 183 H Laboratory Data (last 24hrs): 03/24/19 04:18 Potassium 4.4 Carbon Dioxide 33 H Anion Gap 3.0 Creatinine 0.82 Est Cr Clr Drug Dosing 79.5 - Recent Pertinent Medications Outpatient Anti-diabetic Regimen: * None * A1c ordered with AM Labs Risk Factors for Insulin Resistance: * Steroids: Solu-medrol 60mg IV Q6H --> Decreased to Q12H today * Infection:Vancomycin, Cefepime, Doxycycline, for CAP * Pressors: propofol and fentanyl * Diet: Pepatmen @ 50cc/hr * Mechanical Ventilation: YES - Assessment & Plan Assessment & Plan: ASSESSMENT: * 73-year-old male admitted to ICU with acute on chronic respiratory failure in the setting of likely pulmonary fibrosis with acute ARDS requiring endotracheal intubation for adequate oxygenation, on propofol and fentanyl * Patient also on IV steroids and tube feeds. Will begin Novolog CF only at this time, as patient's blood sugar is just above goal for ICU setting. * Steroids are starting to taper, will add carb coverage for tube feeds if blood sugars continue above goal despite adding Novolog CF. PLAN FOR INPATIENT GLYCEMIC CONTROL: * Basal insulin - none at this time * Bolus insulin * NovoLog per scale ACHS or Q6hrs while NPO * Goal Range: Low 140 mg/dL - High 180 mg/dL * Correction Factor: 25 mg/dL/unit * Nutritional / Prandial - None at this time, but will begin to cover tube feeds if necessary with insulin per carb ratio of 1 unit per 8 grams CHO consumed * Please note that the plan above was derived based on current level of insulin resistance and hospital stress. These recommendations are appropriate for inpatient admission only. Plan of care upon discharge will need to be reassessed to avoid potential outpatient hypo/hyperglycemia. Thank you.
[2019-03-24] MEDS ORDERED: VANCOMYCIN TROUGH ONE (15:30)
--- NOTE | 2019-03-24 15:36 | Hospitalist Progress Note ---
Date of Service March 24, 2019 Assessment & Plan (1) Community acquired pneumonia: Bilateral. Treated with Rocephin and azithromycin from March 19 through today. Then switched to cefepime and vancomycin. doxycycline added Sputum culture at [facility] on March 19 revealed moderate gram-positive cocci in pairs, chains, clusters. Many infectious disease recommends re-adding azithromycin for atypical coverage (2) Acute on chronic respiratory failure: Patient is intubated and ventilated, holding Eliquis in the event that bronchoscopy with biopsy is necessary. (3) Atrial fibrillation with RVR: Cardioverted after DERICK at [facility] and now in normal sinus rhythm. Currently on diltiazem and metoprolol to maintain normal sinus rhythm. 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 Diffuse interstitial lung disease noted on CT scan (7) COPD exacerbation: Bronchodilators and intravenous Solu-Medrol (8) DVT prophylaxis: Lovenox subcu. Hold Eliquis Subjective Patient is sedated and ventilated Review of Systems Review of Systems: Unobtainable due to endotracheal tube Physical Exam Physical Exam: The patient appeared seriously ill Vital signs as documented. Head exam is unremarkable. normocephalic, atraumatic Neck is with trachea midline no lymphademopathy Lungs are coarse bilaterally with rales and rhonchi Cardiac exam reveals Rhythm is regular. Abdominal exam reveals hypoactive bowel sounds, soft Extremities are nonedematous and both pedal pulses are present Skin is warm / Dry without bruises or lesions Results & Data Vital Signs (Past 12 Hours) Vital Signs Temp Pulse Pulse Resp BP Pulse Ox 03/24/19 13:40 67 22 95 03/24/19 13:01 67 150/72 H 93 03/24/19 12:01 36.8 C 67 24 129/65 94 03/24/19 12:00 59 L 03/24/19 11:45 59 L 59 L 25 H 96 03/24/19 11:01 60 26 H 142/73 H 97 03/24/19 10:01 36.8 C 71 26 H 126/59 L 96 03/24/19 09:01 59 L 24 128/65 95 03/24/19 08:01 36.6 C 62 26 H 141/66 H 95 03/24/19 08:00 63 03/24/19 07:39 65 25 H 95 03/24/19 07:01 64 26 H 123/70 95 03/24/19 06:00 61 98 03/24/19 05:20 62 25 H 98 03/24/19 05:00 62 20 135/69 98 03/24/19 04:10 64 23 98 03/24/19 04:00 36.5 C 58 L 135/73 98
--- NOTE | 2019-03-24 16:08 | Pharmacy Report ---
Pharmacy Abx Dose Short Note - Date of Service March 24, 2019 - Assessment & Plan Assessment 73 year old M receiving Vancomycin, Doxycycline and Cefepime for treatment of pneumonia. Day # 3 of antimicrobial therapy. Plan Vancomycin * Trough level of 9.3 mcg/mL is subtherapeutic * Level was drawn prior to steady state and also drawn about a half hour early. Given that it is prior to steady state and levels are predicted to rise, will decrease dosing interval. * Change to 1250 mg IV every 12 hours * Goal trough level for pneumonia : 15 to 20 mcg/mL * Trough or random level ordered for: 03/26/19 @0330. Cefepime * Continue 1 gm iv q8h Pharmacy will continue to follow and will adjust dose/frequency as necessary. Thank you.
[2019-03-24 16:36] LABS: iSTAT Arterial Blood Gas HCO3 34 meg/L (19-24); iSTAT Carbon Dioxide 36 mEq/l (24-31); iSTAT FiO2 60 %; iSTAT Site Art Line
[2019-03-24] MEDS: PEPTAMEN INTENSE VHP 1.0 CAL 1,000 ML BAG OG SCH (17:54)
[2019-03-24] MEDS: ENOXAPARIN INJ 40 MG/0.4 ML SYR SQ SCH (20:59)
[2019-03-25] MEDS: INSULIN ASPART 100 UNITS/ML 3 ML PEN SC SCH ×6 (00:25→17:41)
[2019-03-25] MEDS: PROPOFOL 1,000 MG/100 ML VIAL IV PRN ×4 (02:20→20:02)
[2019-03-25] MEDS: DOXYCYCLINE HYCLATE 100 MG in DEXTROSE 5% 100 ML IV SCH (02:23)
[2019-03-25] MEDS: LEVALBUTEROL HCL 0.63 MG/3 ML NEB INH SCH ×6 (03:40→23:12)
[2019-03-25] MEDS: CEFEPIME 1,000 MG in SYRINGE 0 ML IV SCH ×3 (03:54→20:03)
[2019-03-25 04:30] LABS: Hematocrit (blood only) 35.1 % (42-52); Hemoglobin 11.4 g/dL (14.0-18.0); Immature Granulocytes # (auto) 0.02 K/uL (0.00-0.02); Immature Granulocytes % (auto) 0.4 %; Lymphocytes # (auto) 0.21 K/uL (1.2-3.4); Lymphocytes % (auto) 4.4 %; Mean Corpuscular Hgb Conc 32.5 g/dL (32-36); Mean Corpuscular Volume 104.8 fL (80-100); Mean Platelet Volume 8.7 fL (7.4-10.4); Monocytes # (auto) 0.43 K/uL (0.11-0.59); Neutrophils # (auto) 4.14 K/uL (1.4-6.5); Neutrophils % (auto) 86.2 %; Platelet Count 109 K/uL (130-400); RDW Coefficient of Variation 12.9 % (11.5-14.5); RDW Standard Deviation 49.4 fL (36.4-46.3); Red Blood Count 3.35 M/uL (4.7-6.1)
[2019-03-25] MEDS: VANCOMYCIN HCL 1,250 MG in SODIUM CHLORIDE 0.9% 250 ML IV SCH ×2 (04:38→15:48)
[2019-03-25 04:56] LABS: BUN Creatinine Ratio 50.8 (10-20); Calcium 8.8 mg/dl (8.5-10.1); Creatinine Clr Calc Pharmacy 80.9 ml/min; Est GFR (African American) 101.5; Est GFR (Non-African American) 87.6; Magnesium 2.6 mg/dl (1.8-2.4); Potassium 4.7 mmol/L (3.5-5.1)
[2019-03-25 04:58] LABS: Phosphorus 2.3 mg/dl (2.5-4.9)
[2019-03-25] MEDS: dilTIAZem HCl 60 MG TAB PO SCH ×3 (05:57→17:40)
[2019-03-25 06:39] LABS: iSTAT Arterial Blood Gas HCO3 33 meg/L (19-24); iSTAT Carbon Dioxide 35 mEq/l (24-31); iSTAT FiO2 50 %; iSTAT Site Art Line
[2019-03-25] MEDS: ASPIRIN 81 MG CHEW GT SCH (07:39)
[2019-03-25] MEDS: SODIUM CHLORIDE 0.9% 1000ML 1,000 ML IV SCH (07:39)
[2019-03-25] MEDS: METOPROLOL TARTRATE 50 MG TAB PO SCH ×3 (07:39→20:04)
[2019-03-25] MEDS: methylPREDNISolone 60 MG in SYRINGE 0 ML IV SCH ×2 (07:41→20:06)
[2019-03-25] MEDS: FAMOTIDINE 20 MG in SYRINGE 3 ML IV SCH ×2 (07:42→20:03)
--- NOTE | 2019-03-25 08:11 | Pharmacy Report ---
Pharmacy Glycemic Short Note 2 - Date of Service March 25, 2019 - Glycemic Short BSG Results (Last 24 hours): 03/24/19 03/24/19 03/24/19 11:40 17:21 23:34 Glucose POC Glucose 183 H 189 H 172 H 03/25/19 03/25/19 04:10 05:54 Glucose 194 H POC Glucose 184 H Risk Factors for Insulin Resistance: * Steroids: Solu-medrol 60mg IV Q6H --> Decreased to Q12H yesterday * Infection:Vancomycin, Cefepime, Doxycycline, for CAP * Pressors: propofol and fentanyl * Diet: Pepatmen @ 50cc/hr * Mechanical Ventilation: YES Assessment & Plan: ASSESSMENT: 03/25/19 * A1c pending * Blood sugars at goal or just above goal, tube feeds at goal 60cc/hr. * Will start scheduled Novolog Q6H to cover carbs in TFs and keep BSGs at goal * Solu-medrol titrating down, may need to decreases insulin needs as steroid effects decrease. 03/24/19 * 73-year-old male admitted to ICU with acute on chronic respiratory failure in the setting of likely pulmonary fibrosis with acute ARDS requiring endotracheal intubation for adequate oxygenation, on propofol and fentanyl * Patient also on IV steroids and tube feeds. Will begin Novolog CF only at this time, as patient's blood sugar is just above goal for ICU setting. * Steroids are starting to taper, will add carb coverage for tube feeds if blood sugars continue above goal despite adding Novolog CF. PLAN FOR INPATIENT GLYCEMIC CONTROL: * Basal insulin - none at this time * Bolus insulin * NovoLog 2 units SQ Q6H scheduled (for carbs in TFs) * NovoLog per scale ACHS or Q6hrs while NPO * Goal Range: Low 140 mg/dL - High 180 mg/dL * Correction Factor: 25 mg/dL/unit
--- NOTE | 2019-03-25 12:22 | Critical Care Progress Note ---
Date of Service March 25, 2019 Assessment & Plan (1) Admitted to intensive care unit: 73-year-old male with acute on chronic respiratory failure in the setting of likely pulmonary fibrosis with acute ARDS requiring endotracheal intubation for adequate oxygenation. NEURO - * Sedation: Propofol gtt * Pain: Fentanyl gtt CARDIAC/VASCULAR - * NSTEMI: * Elevated troponin in the setting of acute respiratory distress. * Likely secondary to compensation in the setting of poor lungs with ARDS. * A-Fib: * diltiazem NG 60 mg Q 60 of the immediate release, metoprolol 50 TID; Hydralazine PRN and terazocin (has BP effect) * holding anticoagulation given hemoptysis * Monitor on telemetry. RESPIRATORY - * Acute on chronic hypoxic respiratory failure: * concerns for bilateral lower lobe pneumonia with progression to fulminant ARDS. * Serial ABGs to gauge weaning down FiO2. Down to 50% FiO2. He is retaining CO2 it seems he has baseline hypercapnia. Increased his IPAP to 15 and EPAP kept at 8. * Diurese gently to maintain 0 balance * TAPER IV Solu-Medrol to prednisone 40 mg via NG daily * Currently covered w/ Cefepime/Vanc. and will add doxycycline for atypical coverage * Nebs Q6 GI/NUTRITION - * OG in place. * ONGOING feeds * Prophylaxis: Famotadine RENAL/LYTES / * mild hypophosphatemia repleted. * Will continue to monitor lytes - replace appropriately. * IVF: NSS@20mL/hr. hE IS 2.138 LITERS POSITIVE SINCE ADMISSION * monitor UO and maintain >0.5ml/Kg BW-hr * Judd in place - Strict I&Os. ENDO - * No h/o DM or Thyroid Dz * BSGs per unit protocol. ISS --> gtt per unit policy. HEME - * Stable H&H * OBTAIN DAILY ID - * Bilateral Lower Lobe Pneumonia: * Previously on Rocephin/Azithromycin. * Changed to Cefepime/Vanc as condition declineD AND ADDED DOXYCYCLIN. aPPRECIATE ID consult * ProCal >18. LINES/IV ACCESS - * PIVs x2 * RIGHT Radial Art Line * ET Tube * Judd DVT PROPHYLAXIS - * Lovenox * SCDs I have personally spent 40 minutes of critical care time in the direct management of this patient. (2) Acute and chronic respiratory failure with hypoxia: (3) Interstitial lung disease: (4) Hypertension: (5) Congestive heart failure: (6) Atrial fibrillation with RVR: (7) Community acquired pneumonia: (8) ARDS (adult respiratory distress syndrome): Subjective The patient remains sedated and intubated. We were able to go down to FiO2 50% with SpO2 now holding at 89-90%. His RVR is totally resolved and HR is in the 70s but he is hypertensive although he is on all his home meds except terazocin which I added together with Hydralazine PRN. He appears puffy but there is no pitting edema. He has no wheezes and his breath sounds are clear to auscultation. His WBC normalized and is actually now at 4. Sputum cultures remain negative. Review of Systems Review of Systems: Unobtainable due to endotracheal tube Physical Exam Eyes: PERRL, conjunctivae normal, anicteric sclerae Neck: trachea midline, no thyromegaly Respiratory: Auscultation: lungs clear to auscultation bilaterally Cardiovascular: Rate/Rhythm: regular rate and regular rhythm Heart Sounds: normal S1 and normal S2 Gastrointestinal (Abdomen): normal bowel sounds, soft, nontender, no hepatosplenomegaly Musculoskeletal: no cyanosis or clubbing, extremities motor strength 5/5 Psychiatric: Sedated Results & Data Vital Signs (Past 12 Hours) Vital Signs Temp Pulse Resp BP Pulse Ox 03/25/19 11:16 85 23 94 03/25/19 08:00 65 156/81 H 03/25/19 07:14 75 20 94 03/25/19 06:15 78 25 H 93 03/25/19 06:00 78 155/82 H 95 03/25/19 05:00 82 165/77 H 91 03/25/19 04:00 37.7 C H 78 129/86 93 03/25/19 03:40 64 96 03/25/19 03:00 91 H 20 140/92 91 03/25/19 02:00 66 24 97 03/25/19 01:00 70 133/67 93 Critical Care Time Critical Care Time: Yes Total Critical Care Time: 40 40 min
[2019-03-25] MEDS: HydrALAZINE HCL 20 MG/ML VIAL IV PRN ×2 (12:25→20:04)
[2019-03-25] MEDS ORDERED: SODIUM PHOSPHATE 3 MMOL/1 ML 5 ML VIAL IV ONE (13:00)
[2019-03-25] MEDS ORDERED: SODIUM PHOSPHATE 15 MMOL in SODIUM CHLORIDE 0.9% 250 ML IV ONE (13:00)
[2019-03-25] MEDS: fentaNYL DRIP 1,250 MCG/250 ML BAG IV PRN (13:54)
[2019-03-25] MEDS: PEPTAMEN INTENSE VHP 1.0 CAL 1,000 ML BAG OG SCH (14:04)
--- NOTE | 2019-03-25 14:22 | XRay Report ---
SINGLE VIEW CHEST CLINICAL HISTORY: Respiratory distress. FINDINGS: An AP, portable, upright chest radiograph is compared to study dated 03/24/2019 and correlate d with chest CT dated 03/22/2019. The examination is degraded by portable technique and patient rotati on. Endotracheal and enteric tubes are unchanged in position. The heart is enlarged and there is athe rosclerotic calcification of the thoracic aorta. There is is at least mild pulmonary vascular congest ion. Mediastinal and hilar adenopathy were better characterized on the recent chest CT. Emphysematous change is noted. Groundglass consolidation is again seen throughout both lungs. Small pleural effusi ons are suspected with bibasilar atelectasis. No pneumothorax is seen. The skeletal structures are os teopenic. The bony thorax is grossly intact. IMPRESSION: 1. Stable lines and tubes. 2. Cardiomegaly with at least mild pulmonary vascular congestion. 3. Emphysema and diffuse groundglass consolidation change is similar to previous. This was better jeremy racterized on the recent chest CT. 4. Suspect trace pleural effusions. Electronically signed by: Karlos Livingston M.D. 03/25/2019 2:21 PM
[2019-03-25 14:40] LABS: iSTAT Arterial Blood Gas HCO3 32 meg/L (19-24); iSTAT Carbon Dioxide 34 mEq/l (24-31); iSTAT FiO2 50 %; iSTAT Site Art Line
--- NOTE | 2019-03-25 14:56 | Hospitalist Progress Note ---
Date of Service March 25, 2019 Assessment & Plan (1) Community acquired pneumonia: Bilateral. Treated with Rocephin and azithromycin from March 19 through admission now switched to cefepime and vancomycin. doxycycline added Sputum culture at [facility] on March 19 revealed moderate gram-positive cocci in pairs, chains, clusters. (2) Acute on chronic respiratory failure: Patient is intubated and ventilated, holding Eliquis in the event that bronchoscopy with biopsy is necessary. (3) Atrial fibrillation with RVR: Cardioverted after DERICK at [facility] and now in normal sinus rhythm. Currently on diltiazem and metoprolol to maintain normal sinus rhythm. 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 Diffuse interstitial lung disease noted on CT scan (7) COPD exacerbation: Bronchodilators and intravenous Solu-Medrol (8) DVT prophylaxis: Lovenox subcu. Hold Eliquis Subjective Patient is sedated intubated ventilated but able to have a slightly reduced Review of Systems Review of Systems: Unobtainable due to endotracheal tube Physical Exam Physical Exam: The patient appeared he is on ventilatory support however he does open his eyes to voice Vital signs as documented. Head exam is unremarkable. normocephalic, atraumatic Neck is without jugular venous distension, trachea is midline Lungs are c worse bilaterally Cardiac exam reveals Rhythm is regular. Abdominal exam reveals hypoactive bowel sounds, Extremities are nonedematous and both pedal pulses are present Neurologic exam is sedate Skin is warm / Dry Results & Data Vital Signs (Past 12 Hours) Vital Signs Temp Pulse Resp BP Pulse Ox 03/25/19 12:13 79 168/81 H 03/25/19 12:00 85 03/25/19 11:16 85 23 94 03/25/19 08:00 65 156/81 H 03/25/19 07:14 75 20 94 03/25/19 06:15 78 25 H 93 03/25/19 06:00 78 155/82 H 95 03/25/19 05:00 82 165/77 H 91 03/25/19 04:00 37.7 C H 78 129/86 93 03/25/19 03:40 64 96 03/25/19 03:00 91 H 20 140/92 91
[2019-03-25] MEDS: ENOXAPARIN INJ 40 MG/0.4 ML SYR SQ SCH (20:04)
[2019-03-25] MEDS: TERAZOSIN HCL 5 MG CAP PO SCH (20:04)
[2019-03-26] MEDS: dilTIAZem HCl 60 MG TAB PO SCH ×5 (00:32→23:53)
[2019-03-26] MEDS: HydrALAZINE HCL 20 MG/ML VIAL IV PRN ×2 (00:32→04:40)
[2019-03-26] MEDS: INSULIN ASPART 100 UNITS/ML 3 ML PEN SC SCH ×7 (00:33→18:00)
[2019-03-26] MEDS ORDERED: PROPOFOL 1,000 MG/100 ML VIAL IV PRN (01:22)
[2019-03-26] MEDS ORDERED: VANCOMYCIN TROUGH ONE (03:30)
[2019-03-26] MEDS: LEVALBUTEROL HCL 0.63 MG/3 ML NEB INH SCH ×5 (03:37→19:38)
[2019-03-26 03:55] LABS: Hematocrit (blood only) 31.8 % (42-52); Hemoglobin 10.3 g/dL (14.0-18.0); Mean Corpuscular Hgb Conc 32.4 g/dL (32-36); RDW Standard Deviation 49.6 fL (36.4-46.3); Red Blood Count 3.03 M/uL (4.7-6.1); White Blood Count 3.66 K/uL (4.8-10.8)
[2019-03-26 04:11] LABS: Albumin Level 2.5 gm/dl (3.4-5.0); BUN Creatinine Ratio 60.3 (10-20); Bilirubin Direct 0.5 mg/dl (0-0.2); Calcium 8.3 mg/dl (8.5-10.1); Creatinine Clr Calc Pharmacy 101.9 ml/min; Est GFR (African American) 111.8; Est GFR (Non-African American) 96.5; Magnesium 2.3 mg/dl (1.8-2.4); Potassium 4.5 mmol/L (3.5-5.1)
[2019-03-26 04:14] LABS: Bilirubin,Total 1.1 mg/dl (0.2-1); Phosphorus 2.2 mg/dl (2.5-4.9); Total Protein 5.2 gm/dl (6.4-8.2)
[2019-03-26 04:39] LABS: Mean Platelet Volume 8.7 fL (7.4-10.4); Platelet Count 90 K/uL (130-400)
[2019-03-26] MEDS: CEFEPIME 1,000 MG in SYRINGE 0 ML IV SCH (04:40)
[2019-03-26] MEDS: VANCOMYCIN HCL 1,250 MG in SODIUM CHLORIDE 0.9% 250 ML IV SCH (04:40)
[2019-03-26 04:41] LABS: Immature Granulocytes # (auto) 0.01 K/uL (0.00-0.02); Immature Granulocytes % (auto) 0.3 %; Lymphocytes # (auto) 0.36 K/uL (1.2-3.4); Lymphocytes % (auto) 9.8 %; Monocytes # (auto) 0.23 K/uL (0.11-0.59); Monocytes % (auto) 6.3 %; Neutrophils # (auto) 3.06 K/uL (1.4-6.5); Neutrophils % (auto) 83.6 %; Platelet Estimate Decreased (Normal)
[2019-03-26 05:59] LABS: iSTAT Arterial Blood Gas HCO3 31 meg/L (19-24); iSTAT Carbon Dioxide 32 mEq/l (24-31); iSTAT FiO2 45 %; iSTAT Site Art Line
[2019-03-26 06:13] LABS: Estimated Average Glucose 108 mg/dl; Hemoglobin A1C 5.4 % (4.5-5.6)
--- NOTE | 2019-03-26 07:20 | XRay Report ---
XR chest 1V portable CLINICAL HISTORY: f/u COMPARISON STUDY: Chest CT March 22, 2019. Chest radiograph March 25, 2019. FINDINGS: Tip of nasogastric tube is within the body of the stomach. Tip of endotracheal tube is 2.3 cm above the walter. Moderate cardiomegaly is again noted. There is no pneumothorax. Diffuse intersti tial thickening with bilateral opacities has slightly progressed. No pleural effusion is identified. IMPRESSION: Slight progression of bilateral airspace opacities with interstitial thickening. The fin dings may reflect pneumonia, pulmonary edema or ARDS superimposed upon interstitial lung disease. Electronically signed by: Kane Partida M.D. 03/26/2019 7:19 AM
[2019-03-26] MEDS: ASPIRIN 81 MG CHEW GT SCH (07:55)
[2019-03-26] MEDS: METOPROLOL TARTRATE 50 MG TAB PO SCH ×3 (07:56→20:08)
[2019-03-26] MEDS: FAMOTIDINE 20 MG in SYRINGE 3 ML IV SCH (07:57)
[2019-03-26] MEDS: methylPREDNISolone 60 MG in SYRINGE 0 ML IV SCH (07:57)
[2019-03-26] MEDS ORDERED: SENNA 17.6 MG/10 ML UDP PO PRN (08:31)
[2019-03-26] MEDS ORDERED: POTASSIUM PHOS 3 MMOL/1 ML INFUSION IV STA (08:31)
[2019-03-26] MEDS ORDERED: MINERAL OIL 30 ML UDC PO ONE (08:31)
[2019-03-26] MEDS ORDERED: POTASSIUM PHOSPHATE 21 MMOL in SODIUM CHLORIDE 0.9% 500 ML IV ONE (08:45)
[2019-03-26] MEDS: SODIUM CHLORIDE 0.9% 1000ML 1,000 ML IV SCH (09:23)
[2019-03-26] MEDS: Heparin Adult STANDARD Wt-Based Dextrose 5% 25,000 units/500 mL IV SCH (09:28)
[2019-03-26] MEDS ORDERED: HEPARIN IV BOLUS 6,000 UNITS in SYRINGE 0 ML IV ONE (09:30)
--- NOTE | 2019-03-26 10:04 | Infectious Disease Progress Nt ---
Date of Service March 26, 2019 Assessment & Plan (1) ARDS (adult respiratory distress syndrome): continue abx for now, if able repeat sputum culture. will check legionella antigen. suggest agree with doxy for atypical coverage. Subjective pt remains sedated on vent, unable to obtain ros. afebrile. tolerating abx. doxy to be added for atypical coverage. sputum culture normal rinku only. wbc 3.6 Review of Systems Review of Systems: Unobtainable due to endotracheal tube Physical Exam Constitutional: WD/WN, vitals as above Neck: normal visual inspection Respiratory: Auscultation: lungs clear to auscultation bilaterally Cardiovascular: RRR, no murmur, no edema Gastrointestinal (Abdomen): Inspection/Auscultation: abdomen normal to inspection; abdomen not distended Percussion/Palpation: abdomen soft Musculoskeletal: Head/Neck/Chest: normocephalic and head atraumatic Extremities: extremities normal to inspection Skin: no rashes, warm and dry Results & Data Vital Signs (Past 12 Hours) Vital Signs Temp Pulse Resp BP Pulse Ox 03/26/19 07:31 83 25 H 91 03/26/19 07:19 83 03/26/19 07:01 86 156/70 H 89 L 03/26/19 05:35 101 H 25 H 92 03/26/19 03:38 71 93 03/26/19 03:00 72 128/60 93 03/26/19 02:00 73 128/62 93 03/26/19 01:50 75 24 91 03/26/19 01:01 77 136/60 92 03/26/19 00:00 37.6 C H 72 20 92 03/25/19 23:18 71 26 H 91 03/25/19 23:00 73 140/60 91 Laboratory Results Microbiology 03/23/19 19:30 Sputum,Vent Suction Gram Stain - Final 03/23/19 19:30 Sputum,Vent Suction Sputum Culture - Final Light normal rinku.
[2019-03-26 10:34] LABS: iSTAT Art Bld Gas pCO2 Correct 49 mmHg (35-46); iSTAT Art Bld Gas pH Corrected 7.405 (7.35-7.45); iSTAT Arterial Blood Gas pCO2 49 mmHg (35-46); iSTAT Arterial Blood Gas pH 7.41 (7.35-7.45)
[2019-03-26 10:40] LABS: INR 1.1 (0.9-1.1); Partial Thromboplastin Ratio 0.9; Partial Thromboplastin Time 23.4 Seconds (21.0-31.0); Prothrombin Time 11.2 Seconds (9.0-12.0)
[2019-03-26 10:40] LABS: Patient Temperature 36.5; iSTAT Art Bld Gas pCO2 Correct 58 mmHg (35-46); iSTAT Art Bld Gas pH Corrected 7.362 (7.35-7.45); iSTAT Arterial Blood Gas pCO2 60 mmHg (35-46); iSTAT Arterial Blood Gas pH 7.36 (7.35-7.45)
[2019-03-26 10:59] LABS: iSTAT Art Bld Gas pCO2 Correct 66 mmHg (35-46); iSTAT Art Bld Gas pH Corrected 7.319 (7.35-7.45); iSTAT Arterial Blood Gas pCO2 66 mmHg (35-46); iSTAT Arterial Blood Gas pH 7.32 (7.35-7.45)
--- NOTE | 2019-03-26 11:03 | Critical Care Progress Note ---
Date of Service March 26, 2019 Assessment & Plan (1) Admitted to intensive care unit: 73-year-old male with acute on chronic respiratory failure in the setting of likely pulmonary fibrosis with acute ARDS requiring endotracheal intubation for adequate oxygenation. NEURO - * CAM positive: Still clearing sedation, however improving CARDIAC/VASCULAR - * NSTEMI: * Elevated troponin in the setting of acute respiratory distress. * Likely secondary to intrinsic lung disease * A-Fib: * Increased diltiazem NG 90 mg of the immediate release, metoprolol 50 TID; Hydralazine PRN and terazocin (has BP effect) * Monitor on telemetry. RESPIRATORY - * Acute on chronic hypoxic respiratory failure: * concerns for bilateral lower lobe pneumonia in the setting of bilateral pneumoconiosis, ARDS unlikely. * Serial ABGs to gauge weaning down FiO2. Down to 50% FiO2. He is retaining CO2 it seems he has baseline hypercapnia. * On 3 L oxygen at baseline * Diurese for negative balance * Prednisone 40 mg by mouth tomorrow * De-escalate to doxycycline as single agent * Nebs Q6 GI/NUTRITION - * Will allow diet once passes bedside swallow * Prophylaxis: Famotadine RENAL/LYTES / * 20 mg Lasix * Judd in place - Strict I&Os. ENDO - * No h/o DM or Thyroid Dz * BSGs per unit protocol. ISS --> gtt per unit policy. HEME - * Stable H&H * OBTAIN DAILY * Will require long-term anticoagulation secondary to atrial fibrillation ID - * Bilateral Lower Lobe Pneumonia: * De-escalation to doxycycline LINES/IV ACCESS - * PIVs x2 * ET Tube: Trial of extubation today * Judd DVT PROPHYLAXIS - * Heparin infusion for atrial fibrillation with rapid ventricular response * SCDs Patient was discussed in multidisciplinary rounds. Dr. Hinojosa was resident physician during care of patient. I separately evaluated patient for unger portions of the history and the exam. I was present during the critical portion of medical decision making, and I discussed the case with the resident. I generally agree with the findings and plan. 2:00 medical update: Patient desaturating will transition between high flow and BiPAP for patient comfort 1600 update: Patient's not saturating well on high flow we will transition to BiPAP 1800: Improved on BiPAP with decreased FiO2 requirements I have personally spent 65 minutes of critical care time in the direct management of this patient. This is a life/limb threatening event. This includes time spent evaluating patient, direct bedside care, chart review, placing orders, interpretation of diagnostic studies, discussion with consultants, patient, and/or family members regarding treatment decisions, as well as other required patient management activities. This time is exclusive of all separately billable procedures, and teaching time and separate from and in addition to any other critical care service time. (2) Acute and chronic respiratory failure with hypoxia: (3) Interstitial lung disease: (4) Hypertension: (5) Congestive heart failure: (6) Atrial fibrillation with RVR: (7) Community acquired pneumonia: (8) ARDS (adult respiratory distress syndrome): Subjective Patient intubated this morning, but wakeable. Unable to provide subjective history or ROS. No family present at bedside Review of Systems Review of Systems: Unobtainable due to endotracheal tube Physical Exam Constitutional: + mechanically ventilated and + overweight; no acute distress Patient with ET tube on vent. Respiratory: normal respiratory effort Auscultation: lungs clear to auscultation bilaterally; no crackles, no rales, no rhonchi and no wheezes Cardiovascular: Rate/Rhythm: regular rate and regular rhythm Heart Sounds: no click, no gallop, no murmur and no cardiac rub Gastrointestinal (Abdomen): Inspection/Auscultation: abdomen normal to inspection; abdomen not distended Percussion/Palpation: abdomen soft Neurologic: deep tendon reflexes 2+ bilaterally and moves all extremities Motor/Sensory: normal movement Cranial Nerves: PERRL Intubated, but easily rousable Results & Data Vital Signs (Past 12 Hours) Vital Signs Temp Pulse Resp BP Pulse Ox 03/26/19 07:19 83 03/26/19 07:01 86 156/70 H 89 L 03/26/19 05:35 101 H 25 H 92 03/26/19 03:38 71 93 03/26/19 03:00 72 128/60 93 03/26/19 02:00 73 128/62 93 03/26/19 01:50 75 24 91 03/26/19 01:01 77 136/60 92 03/26/19 00:00 37.6 C H 72 20 92 03/25/19 23:18 71 26 H 91 03/25/19 23:00 73 140/60 91 Resident Activity Tracking Resident Involvement: Resident Care Provided Care Provided: [facility] Medicine
[2019-03-26 11:04] LABS: iSTAT Art Bld Gas pCO2 Correct 62 mmHg (35-46); iSTAT Art Bld Gas pH Corrected 7.335 (7.35-7.45); iSTAT Arterial Blood Gas pCO2 60 mmHg (35-46); iSTAT Arterial Blood Gas pH 7.35 (7.35-7.45)
[2019-03-26 11:05] LABS: Patient Temperature 37.7
[2019-03-26 11:07] LABS: Patient Temperature 37; iSTAT Art Bld Gas pCO2 Correct 55 mmHg (35-46); iSTAT Art Bld Gas pH Corrected 7.379 (7.35-7.45); iSTAT Arterial Blood Gas pCO2 55 mmHg (35-46); iSTAT Arterial Blood Gas pH 7.38 (7.35-7.45)
[2019-03-26] MEDS ORDERED: FUROSEMIDE 20 MG in SYRINGE 0 ML IV ONE ×2 (11:15→18:05)
[2019-03-26] MEDS: DOXYCYCLINE HYCLATE 100 MG in DEXTROSE 5% 100 ML IV SCH ×2 (11:49→20:07)
--- NOTE | 2019-03-26 12:48 | Palliative Care Consultation ---
Date of Consultation March 26, 2019 Assessment & Plan (1) Goals of care, counseling/discussion: -73 year old male patient with PMH interstitial pulmonary fibrosis, A. fib, CHF, and hypertension who initially was admitted to the [facility] with concerns of bilateral lower lobe pneumonia. Patient was placed on abx and BIPAP. He had progression of his shortness of breath despite ventilatory support. Patient was transferred to [facility] for further evaluation and management. Here in ICU, it was decided to intubate patient for treatment of pneumonia and possible ARDS. Patient apparently has had outpatient workup of his ILD, but he was relatively stable and being followed by pulmonary. Patient's stated to some of the staff that she was surprised patient was in agreement with intubation as he did not want that. Palliative care is consulted to discuss goals of care and code status. -Patient was intubated in room 108 this morning upon assessment. His sedation was off and was on cpap via mechanical vent. Plan is to extubate today. Will go back and see if family is at bedside. -Upon review of outpatient records, patient's mostly recent PFTs in January 2018 showed FEV1 96 and mild restrictive disease. A year prior to that, FEV1 was 77-- Ellipta was added and patient apparently had improvement. CT scan of chest now does show diffuse ILD. It seems that patient does have meaningful chance of recovery from this acute episode, and the question will be what his new baseline is from a respiratory and functional standpoint. Will engage with patient and family regarding code status and goals of care. -Returned to patient's room this afternoon. He is extubated and is on bipap. He is confused and states he is thirsty. No family at bedside. Attempted to call patient's , no answer. -Will continue to follow closely. (2) Acute and chronic respiratory failure with hypoxia: (3) Interstitial lung disease: (4) Community acquired pneumonia: Supervising Physician Co-Signing Physician Notes Chart reviewed, patient seen and examined, no family at bedside. Collaborated with KRISTIN Henley PE: Patient now extubated, on high flow nasal cannula HEENT: EOMI, hearing within normal limits Respirations, slightly labored, diminished breath sounds bilaterally CV: Irregularly irregular, 1+ pedal edema Abdomen: Soft, nontender Neuro: Fatigued, somnolent but arousable Agree with above note, assessment and plan as per KRISTIN Henley-will continue to follow and assist patient and family with medical decision making History of Present Illness Attending Physician: Felix Loo History of Present Illness This 73 year old male patient with PMH interstitial pulmonary fibrosis, A. fib, CHF, and hypertension who initially was admitted to the [facility] with concerns of bilateral lower lobe pneumonia. Patient was placed on abx and BIPAP. He had progression of his shortness of breath despite ventilatory support. Patient was transferred to [facility] for further evaluation and management. Here in ICU, it was decided to intubate patient for treatment of pneumonia and possible ARDS. Patient apparently has had outpatient workup of his ILD, but he was relatively stable and being followed by pulmonary. Patient's stated to some of the staff that she was surprised patient was in agreement with intubation as he did not want that. Palliative care is consulted to discuss goals of care and code status. Thank you kindly for this consult. I will follow as needed. Allergies Allergy/AdvReac Type Severity Reaction Status Date / Time No Known Allergies Allergy Verified 03/22/19 20:11 Home Medications Home Medications Medication Instructions Recorded Confirmed Type aspirin 03/22/19 History digoxin [Digox] 03/22/19 History diltiazem HCl DAILY 03/22/19 History furosemide BID 03/22/19 History magnesium oxide 03/22/19 History metoprolol tartrate TID 03/22/19 History terazosin HS 03/22/19 History umeclidinium [Incruse Ellipta] 03/22/19 History Patient History Medical History DVT prophylaxis COPD exacerbation (Acute) Interstitial lung disease (Chronic) Hypertension (Chronic) Congestive heart failure (Acute) Atrial fibrillation with RVR (Acute) Acute on chronic respiratory failure (Acute) Community acquired pneumonia (Acute) Arthritis Coronary artery disease Hyperlipidemia Obstructive sleep apnea Pneumonia Pulmonary artery hypertension Pulmonary fibrosis Family History Other Family history non-contributory Social History Preferred Language: Latvian Communication Ability: Unable Horse 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 Required: No Beliefs That Will Affect Care: None Current Living Situation: Spouse and Family Current Living Situation Comment: Lives with spouse in finished basement of daughter's house Other Information That Helps Us Care for You: No Feels Safe at Home: Yes Safety Concerns: Feels Safe At This Time Smoking Status: Former smoker Hx Alcohol Use: No Hx Substance Use: No Review of Systems Review of Systems: Unobtainable due to endotracheal tube Physical Exam Constitutional: + overweight; no acute distress ENMT: external ear and nose normal, oropharynx normal (ETT present) Neck: + thick neck Respiratory: normal respiratory effort Auscultation: + diminished lung sounds and + rhonchi (extremely coarse throughout) On ventilator Cardiovascular: Rate/Rhythm: + tachycardic; + abnormal rate and + abnormal rhythm Extremities: + edema (generalized edema) Gastrointestinal (Abdomen): Inspection/Auscultation: normal bowel sounds Percussion/Palpation: abdomen soft Neurologic: moves all extremities and awake follows commands while on mechanical ventilator Results & Data Vital Signs (Past 12 Hours) Vital Signs Temp Pulse Resp BP Pulse Ox 03/26/19 12:01 37.1 C 82 156/70 H 96 03/26/19 11:37 88 152/65 H 80 L 03/26/19 11:35 70 20 95 03/26/19 11:01 85 155/67 H 93 03/26/19 10:35 85 18 91 03/26/19 10:01 37.9 C H 89 154/72 H 90 03/26/19 09:01 72 138/63 93 03/26/19 08:01 37.4 C 89 156/62 H 92 03/26/19 07:31 83 25 H 91 03/26/19 07:19 83 03/26/19 07:01 86 156/70 H 89 L 03/26/19 05:35 101 H 25 H 92 03/26/19 03:38 71 93 03/26/19 03:00 72 128/60 93 03/26/19 02:00 73 128/62 93 03/26/19 01:50 75 24 91 03/26/19 01:01 77 136/60 92 Time Spent Midlevel 100 minutes with >50% of time spent at bedside with patient and IDT/ICU staff discussing condition and GOC.
[2019-03-26 16:48] LABS: Partial Thromboplastin Ratio 1.6
[2019-03-26] MEDS ORDERED: HEPARIN IV BOLUS 3,000 UNITS in SYRINGE 0 ML IV ONE (17:35)
[2019-03-26] MEDS ORDERED: methylPREDNISolone 50 MG in SYRINGE 0 ML IV SCH (20:00)
[2019-03-26] MEDS: TERAZOSIN HCL 5 MG CAP PO SCH (20:07)
[2019-03-26] MEDS: FAMOTIDINE 20 MG TAB PO SCH (20:11)
--- NOTE | 2019-03-26 21:38 | Hospitalist Progress Note ---
Date of Service March 26, 2019 Assessment & Plan (1) Community acquired pneumonia: Bilateral. Treated with Rocephin and azithromycin from March 19 through admission now switched to cefepime and vancomycin. doxycycline added Sputum culture at [facility] on March 19 revealed moderate gram-positive cocci in pairs, chains, clusters. Will continue to diurese for negative balance will decalate to doxycycline as single agent Patient will be weaned an extubated this AM. Nebs Q6 (2) Acute on chronic respiratory failure: Patient will be weaned off vent this AM. (3) Atrial fibrillation with RVR: Cardioverted after DERICK at [facility] and now in normal sinus rhythm. Currently on diltiazem and metoprolol to maintain normal sinus rhythm. 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 Diffuse interstitial lung disease noted on CT scan (7) COPD exacerbation: Bronchodilators and intravenous Solu-Medrol (8) DVT prophylaxis: Lovenox subcu stopped Placed on heparin hold Eliquis Spent 35 minutes of management of patient. Patient also seen in PM and was successfully extubated and placed on BIPAP. Subjective Patient was seen and examined while intubated. Patient unable to provide significant history. Review of Systems Review of Systems: Unobtainable due to endotracheal tube Physical Exam Physical Exam: The patient appeared he is on ventilatory support however he does open his eyes to voice Vital signs as documented. Head exam is unremarkable. normocephalic, atraumatic Neck is without jugular venous distension, trachea is midline Lungs are c worse bilaterally Cardiac exam reveals Rhythm is regular. Abdominal exam reveals hypoactive bowel sounds, Extremities are nonedematous and both pedal pulses are present Neurologic exam is sedate Skin is warm / Dry Results & Data Vital Signs (Past 12 Hours) Vital Signs Temp Pulse Pulse Resp BP Pulse Ox 03/26/19 20:00 37.4 C 85 20 152/64 H 96 03/26/19 19:59 88 89 20 95 03/26/19 19:00 79 20 144/68 H 96 03/26/19 17:01 80 150/66 H 97 03/26/19 17:00 81 96 03/26/19 16:33 79 22 95 03/26/19 16:12 79 22 95 03/26/19 16:01 79 155/61 H 03/26/19 16:00 77 03/26/19 15:49 72 90 22 90 03/26/19 15:01 75 145/66 H 95 03/26/19 15:00 37.1 C 74 96 03/26/19 14:01 37.2 C 74 166/64 H 92 03/26/19 14:00 74 92 03/26/19 13:01 76 163/72 H 91 03/26/19 12:01 37.1 C 82 156/70 H 96 03/26/19 11:37 88 152/65 H 80 L 03/26/19 11:35 70 20 95 03/26/19 11:01 85 155/67 H 93 03/26/19 10:35 85 18 91 03/26/19 10:01 37.9 C H 89 154/72 H 90
[2019-03-26 23:26] LABS: Partial Thromboplastin Ratio 2.2
[2019-03-26 23:30] LABS: Partial Thromboplastin Time 60.4 Seconds (21.0-31.0)
[2019-03-27] MEDS: INSULIN ASPART 100 UNITS/ML 3 ML PEN SC SCH ×6 (00:05→21:23)
[2019-03-27] MEDS: Heparin Adult STANDARD Wt-Based Dextrose 5% 25,000 units/500 mL IV SCH ×2 (05:08→19:57)
[2019-03-27 05:20] LABS: Partial Thromboplastin Ratio 2.1
[2019-03-27 05:26] LABS: Partial Thromboplastin Time 56.5 Seconds (21.0-31.0)
[2019-03-27 05:30] LABS: Calcium 8.6 mg/dl (8.5-10.1); Creatinine Clr Calc Pharmacy 103.6 ml/min; Est GFR (African American) 112.5; Est GFR (Non-African American) 97.1; Magnesium 2.4 mg/dl (1.8-2.4); Potassium 4.4 mmol/L (3.5-5.1)
[2019-03-27 05:53] LABS: Phosphorus 3.3 mg/dl (2.5-4.9)
[2019-03-27 05:59] LABS: iSTAT Allen Test Pass; iSTAT Arterial Blood Gas HCO3 37 meg/L (19-24); iSTAT Carbon Dioxide 39 mEq/l (24-31); iSTAT FiO2 80 %; iSTAT Site R Radial
[2019-03-27] MEDS: dilTIAZem HCl 60 MG TAB PO SCH ×3 (06:01→17:02)
--- NOTE | 2019-03-27 07:16 | XRay Report ---
XR chest 1V portable CLINICAL HISTORY: 73 years-old Male presenting with f/u. TECHNIQUE: Portable upright AP view of the chest was obtained. COMPARISON: 03/26/2019. FINDINGS: Interval extubation. Removal of the nasogastric tube. Atherosclerosis of the aortic arch. Cardiac demarcus houette enlarged. Persistent bilateral diffuse pulmonary opacities. Unchanged lung volumes, which are mildly low. Trace right pleural effusion may be present though less prominent than on prior. No pneu mothorax. Degenerative changes of the thoracic spine. Upper abdomen normal. IMPRESSION: 1. Interval extubation and nasogastric tube removal. 2. Unchanged bilateral diffuse pulmonary consolidation compatible with multifocal pneumonia, severe edema, or diffuse alveolar damage. 3. Cardiomegaly. Electronically signed by: Jasvir Verdugo M.D. 03/27/2019 7:15 AM
[2019-03-27] MEDS: LEVALBUTEROL HCL 0.63 MG/3 ML NEB INH SCH ×7 (07:20→23:23)
[2019-03-27] MEDS: FAMOTIDINE 20 MG TAB PO SCH ×2 (07:51→21:27)
[2019-03-27] MEDS: DOXYCYCLINE HYCLATE 100 MG in DEXTROSE 5% 100 ML IV SCH ×2 (07:51→21:23)
[2019-03-27] MEDS: ASPIRIN 81 MG CHEW GT SCH (07:51)
[2019-03-27] MEDS: METOPROLOL TARTRATE 50 MG TAB PO SCH ×3 (07:51→21:28)
[2019-03-27] MEDS ORDERED: MINERAL OIL 30 ML UDC PO ONE (08:24)
[2019-03-27] MEDS: predniSONE 20 MG TAB PO SCH (09:15)
--- NOTE | 2019-03-27 09:29 | Palliative Care Progress Note ---
Date of Service March 27, 2019 Assessment & Plan (1) Goals of care, counseling/discussion: -Patient discussed at ICU rounds today. He is still in a tenuous spot in regards to his respiratory status. -After discussion with ICU doctor, patient and his last evening, patient will remain a full code. He would want another trial of intubation if needed, but would not want long-term ventilation or trach. -Patient's goal is to get home as soon as possible, but he does understand that he is s till quite ill. -Remains on high-flow at 40LPM and 100% FiO2. -Palliative care will continue to follow and assist with decision making/GOC. (2) Acute and chronic respiratory failure with hypoxia: (3) Interstitial lung disease: (4) Community acquired pneumonia: Subjective Patient on high flow nasal cannula at 40LPM, 100% FiO2. More alert today with some minor forgetfulness. Mostly oriented. Review of Systems Review of Systems: C/O SOB at rest. No chest pain, pain or N/V. Physical Exam Constitutional: + overweight; no acute distress Neck: + thick neck Respiratory: normal respiratory effort Auscultation: + diminished lung sounds and + rhonchi (coarseness somewhat improved) Cardiovascular: Rate/Rhythm: + abnormal rate and + abnormal rhythm Extremities: + edema (generalized edema) Gastrointestinal (Abdomen): Inspection/Auscultation: normal bowel sounds Percussion/Palpation: abdomen soft Neurologic: moves all extremities and awake Psychiatric: Orientation: alert and oriented x 3 (but does have periods of confusion) Results & Data Vital Signs (Past 12 Hours) Vital Signs Temp Pulse Pulse Resp BP BP Pulse Ox 03/27/19 08:06 20 90 03/27/19 08:00 36.8 C 72 78 26 H 128/67 96 03/27/19 07:22 75 20 96 03/27/19 06:00 72 18 159/81 H 97 03/27/19 05:00 73 25 H 140/73 96 03/27/19 04:00 37.0 C 74 21 141/61 H 96 03/27/19 02:00 75 16 137/67 96 03/27/19 01:00 68 16 149/64 H 97 03/27/19 00:00 36.4 C L 79 20 157/65 H 95 03/26/19 23:00 72 18 145/64 H 97 03/26/19 22:00 78 24 157/66 H 96 Time Spent Midlevel 35 minutes with >50% of the time spent at bedside with patient discussing condition and GOC.
--- NOTE | 2019-03-27 09:52 | Infectious Disease Progress Nt ---
Date of Service March 27, 2019 Assessment & Plan (1) ARDS (adult respiratory distress syndrome): agree with continued doxy, would give 10 days total. continue supportive care. no new ID recs at this time. Subjective pt extubated, abx narrowed to doxy monotherapy. afebrile overnight. legionella antigen negative, sputum culture with normal rinku only. CXR with edema vs infiltrate vs alveolar damage. creat 0.6 Results & Data Vital Signs (Past 12 Hours) Vital Signs Temp Pulse Pulse Resp BP BP Pulse Ox 03/27/19 08:06 20 90 03/27/19 08:00 36.8 C 72 78 26 H 128/67 96 03/27/19 07:22 75 20 96 03/27/19 06:00 72 18 159/81 H 97 03/27/19 05:00 73 25 H 140/73 96 03/27/19 04:00 37.0 C 74 21 141/61 H 96 03/27/19 02:00 75 16 137/67 96 03/27/19 01:00 68 16 149/64 H 97 03/27/19 00:00 36.4 C L 79 20 157/65 H 95 03/26/19 23:00 72 18 145/64 H 97 03/26/19 22:00 78 24 157/66 H 96 Laboratory Results Microbiology 03/23/19 19:30 Sputum,Vent Suction Gram Stain - Final 03/23/19 19:30 Sputum,Vent Suction Sputum Culture - Final Light normal rinku.
[2019-03-27 10:10] LABS: Patient Temperature 37; iSTAT Art Bld Gas pCO2 Correct 52 mmHg (35-46); iSTAT Art Bld Gas pH Corrected 7.466 (7.35-7.45); iSTAT Arterial Blood Gas pCO2 52 mmHg (35-46); iSTAT Arterial Blood Gas pH 7.47 (7.35-7.45)
--- NOTE | 2019-03-27 10:47 | Critical Care Progress Note ---
Date of Service March 27, 2019 Assessment & Plan (1) Admitted to intensive care unit: 73-year-old male with acute on chronic respiratory failure in the setting of likely pulmonary fibrosis with acute ARDS requiring endotracheal intubation for adequate oxygenation. NEURO - * CAM negative CARDIAC/VASCULAR - * NSTEMI: * Elevated troponin in the setting of acute respiratory distress. * Likely secondary to intrinsic lung disease * A-Fib: * Increased diltiazem NG 90 mg of the immediate release, metoprolol 50 TID; Hydralazine PRN and terazocin (has BP effect) * Monitor on telemetry. RESPIRATORY - * Acute on chronic hypoxic respiratory failure: * concerns for bilateral lower lobe pneumonia in the setting of bilateral pneumoconiosis, ARDS unlikely. * Patient's pulmonary mechanics and values are better with noninvasive mechanical ventilation however he is having some skin breakdown will t ransition between high flow oxygen and BiPAP * On 3 L oxygen at baseline * Diurese for negative balance * Prednisone 40 mg by mouth tomorrow * De-escalate to doxycycline as single agent * Nebs Q6 GI/NUTRITION - * Will allow diet once passes bedside swallow * Prophylaxis: Famotadine * Significant desaturation with work of eating, will place course safe and facilitate supplemental feeding RENAL/LYTES / * 40 of Lasix x1 today * Judd in place - Strict I&Os. ENDO - * No h/o DM or Thyroid Dz * BSGs per unit protocol. ISS --> gtt per unit policy. HEME - * Heparin for atrial fibrillation ID - * Bilateral Lower Lobe Pneumonia: * De-escalation to doxycycline LINES/IV ACCESS - * PIVs x2 * ET Tube: Liberated from ventilator yesterday * Judd DVT PROPHYLAXIS - * Heparin infusion for atrial fibrillation with rapid ventricular response * SCDs Patient was discussed in multidisciplinary rounds. Dr. Hinojosa was resident physician during care of patient. I separately evaluated patient for unger portions of the history and the exam. I was present during the critical portion of medical decision making, and I discussed the case with the resident. I generally agree with the findings and plan. Had extensive discussion with the patient and yesterday at bedside patient to remain full code would agree with trial of intubation however would not want long-term mechanical ventilation or tracheostomy. If patient unable to tolerate BiPAP or worsening oxygen requirement would proceed with intubation. I have personally spent 40 minutes of critical care time in the direct management of this patient. This is a life/limb threatening event. This includes time spent evaluating patient, direct bedside care, chart review, placing orders, interpretation of diagnostic studies, discussion with co nsultants, patient, and/or family members regarding treatment decisions, as well as other required patient management activities. This time is exclusive of all separately billable procedures, and teaching time and separate from and in addition to any other critical care service time. (2) Acute and chronic respiratory failure with hypoxia: (3) Interstitial lung disease: (4) Hypertension: (5) Congestive heart failure: (6) Atrial fibrillation with RVR: (7) Community acquired pneumonia: (8) ARDS (adult respiratory distress syndrome): Colby Gonzalez is doing better today, he is oriented to person place and situation and feels comfortable on high flow nasal cannula. Had discussion with patient and patient's last night and their wish is to try to intubate if required one more time. Review of Systems Constitutional: no fever and no chills Respiratory: + cough; no dyspnea (Despite bit of a cough and large O2 requirement patient reports not feeling dyspneic) Cardiovascular: no chest pain, no dyspnea, no palpitations and no lightheadedness Gastrointestinal: no abdominal pain, no nausea and no vomiting Physical Exam Constitutional: + overweight; no acute distress On bipap first time seeing the patient, by the next time I saw him on high flow nasal cannula. does not appear to be in any acute distress. Sitting up and conversive though while he talks his saturation dips into eighties. Respiratory: normal respiratory effort Auscultation: lungs clear to auscultation bilaterally, + crackles and + rhonchi; no rales Cardiovascular: Rate/Rhythm: regular rate and regular rhythm Heart Sounds: no click, no gallop, no murmur and no cardiac rub Gastrointestinal (Abdomen): Inspection/Auscultation: abdomen normal to inspection; abdomen not distended Percussion/Palpation: abdomen soft Neurologic: deep tendon reflexes 2+ bilaterally and moves all extremities Motor/Sensory: normal movement Cranial Nerves: PERRL Results & Data Vital Signs (Past 12 Hours) Vital Signs Temp Pulse Pulse Resp BP Pulse Ox 03/27/19 04:00 37.0 C 74 21 141/61 H 96 03/27/19 02:00 75 16 137/67 96 03/27/19 01:00 68 16 149/64 H 97 03/27/19 00:00 36.4 C L 79 20 157/65 H 95 03/26/19 23:00 72 18 145/64 H 97 03/26/19 22:00 78 24 157/66 H 96 03/26/19 21:00 82 17 142/61 H 95 03/26/19 20:00 37.4 C 85 20 152/64 H 96 03/26/19 19:59 88 89 20 95 03/26/19 19:00 79 20 144/68 H 96 Critical Care Time Critical Care Time: Yes Total Critical Care Time: 40
[2019-03-27] MEDS ORDERED: FUROSEMIDE 40 MG in SYRINGE 0 ML IV ONE (11:00)
--- NOTE | 2019-03-27 11:34 | XRay Report ---
XR KUB/Abdomen 1 view CLINICAL HISTORY: 73 years-old Male presenting with feeding tube placed. TECHNIQUE: Single supine view of the abdomen was obtained. COMPARISON: None. FINDINGS: Weighted feeding catheter terminates in the distal gastric lumen. The guidewires in place. Nonobstruc tive bowel gas pattern. No gross pneumoperitoneum. Allowing for bowel gas and stool, no calcifications to suggest nephrolithiasis. Multiple pelvic phleb oliths noted. Degenerative changes of the spine. IMPRESSION: 1. Weighted feeding catheter containing guidewire terminates in the distal gastric lumen. Advancemen t to a postpyloric position recommended. Electronically signed by: Jasvir Verdugo M.D. 03/27/2019 11:32 AM
[2019-03-27] MEDS: TERAZOSIN HCL 5 MG CAP PO SCH (21:24)
--- NOTE | 2019-03-27 22:33 | Hospitalist Progress Note ---
Date of Service March 27, 2019 Assessment & Plan (1) Community acquired pneumonia: Bilateral. Treated with Rocephin and azithromycin from March 19 through admission now switched to cefepime and vancomycin. doxycycline added Sputum culture at [facility] on March 19 revealed moderate gram-positive cocci in pairs, chains, clusters. Will continue to diurese for negative balance will decalate to doxycycline as single agent Patient has been extubated and was weaned off bipap. Now is on high flow oxygen. Concern over fact that patient may not be able to be weaned off oxygen. Palliative care is involved. Patient wants to go home as soon as he is able. (2) Acute on chronic respiratory failure: Patient will be weaned off vent on 03/26 (3) Atrial fibrillation with RVR: Cardioverted after DERICK at [facility] and now in normal sinus rhythm. Currently on diltiazem and metoprolol to maintain normal sinus rhythm. 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 Diffuse interstitial lung disease noted on CT scan (7) COPD exacerbation: Bronchodilators and intravenous Solu-Medrol (8) DVT prophylaxis: Lovenox subcu stopped Placed on heparin hold Eliquis Subjective Pleasant 73 yo male reports feeling better today and more comfortable on high flow nasal cannula. Patient reports his SOB has improved, but continues to be weak. Patient reports no new symptoms. Review of Systems Constitutional: + fatigue and + weakness Eyes: no discharge and no eye pain Ear, Nose, Mouth, Throat: no ear pain Respiratory: no cough Cardiovascular: no chest pain and no radiating jaw, neck or arm pain Gastrointestinal: no abdominal pain Genitourinary: no dysuria Musculoskeletal: no back pain Integumentary: no acne Psychiatric: no behavioral changes Endocrine: + fatigue Physical Exam Physical Exam: The patient is resting in bed on high flow nasal cannula. Vital signs as documented. Head exam is unremarkable. normocephalic, atraumatic Neck is without jugular venous distension, trachea is midline Lungs are diffult to auscultate anteriorly. Lung sounds are coarse. Cardiac exam reveals Rhythm is regular. Abdominal exam reveals hypoactive bowel sounds, Extremities are nonedematous and both pedal pulses are present Neurologic exam is awake alert orient to person place. Skin is warm / Dry Results & Data Vital Signs (Past 12 Hours) Vital Signs Temp Pulse Pulse Resp BP Pulse Ox Pulse Ox 03/27/19 22:00 77 21 127/57 L 92 03/27/19 21:00 82 20 127/58 L 89 L 03/27/19 20:05 77 22 92 03/27/19 20:04 77 22 92 03/27/19 20:00 37.1 C 71 20 91 03/27/19 19:00 76 21 123/59 L 89 L 03/27/19 17:00 77 28 H 115/57 L 90 03/27/19 16:17 80 18 94 03/27/19 16:12 80 18 94 03/27/19 16:00 71 24 130/63 91 03/27/19 15:00 91 H 27 H 127/54 L 88 L 03/27/19 14:25 84 26 H 125/55 L 90 03/27/19 14:10 86 26 H 125/55 L 88 L 03/27/19 14:00 86 24 88 L 03/27/19 13:01 81 24 137/61 84 L 03/27/19 13:00 91 H 22 79 L 03/27/19 12:04 96 H 18 90 03/27/19 12:01 87 25 H 138/69 85 L 03/27/19 12:00 84 20 89 L 03/27/19 11:01 75 21 146/70 H 87 L 03/27/19 11:00 80 23 87 L
[2019-03-28] MEDS: dilTIAZem HCl 60 MG TAB PO SCH ×5 (00:10→23:34)
--- NOTE | 2019-03-28 01:07 | Consultation Report ---
DATE OF CONSULTATION: 03/27/2019 PULMONARY MEDICINE CONSULTATION REASON FOR CONSULTATION: The patient wishes to discuss possible future lung transplantation. HISTORY OF PRESENT ILLNESS: This patient is a 73-year-old male with severe coal miners pneumoconiosis, atrial fibrillation, congestive heart failure and hypertension who lives in [facility] who was admitted to [facility] with what was felt to be a lower lobe pneumonia and transferred to this facility. He has been on I.V. Rocephin, azithromycin and then switched to I.V. cefepime and vancomycin with progressive shortness of breath and bilevel positive airway pressure. He failed on this conservative approach and had to be intubated. We have seen the patient in the past at [facility] in the last 2 years' time. He was sedated with propofol, intubated and maintained on mechanical ventilator assistance. Dr. Lantigua thought that it progressed to pulmonary ARDS. I.V. Solu-Medrol was used along with as stated earlier antibiotic utilization and he was hydrated. He was eventually able to be weaned from the ventilator. 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 He is severely debilitated by his underlying lung disease. He also has a longstanding smoking history in the remote past. I have been asked to see the patient to address potential lung transplantation consideration. Currently, the patient is bedridden and I find it even difficult to lift his head and torso in order to auscultate his lung hwang. He has been seen by palliative care by [facility]. For details of past medical history, medications, family and social history, I refer you to current and past record of Dr. Lantigua's previous notation. PHYSICAL EXAMINATION: VITAL SIGNS: Blood pressure 137/61, pulse 81 and regular, respiratory rate 24, temperature of 33.8, O2 sat 88%. SKIN: Without lesion. HEENT: Atraumatic and normocephalic. PERRLA. Nasopharyngeal feeding tube in place. LUNGS: Coarse rales with scattered wheeze. CARDIAC: Sinus tachycardia. No S3. ABDOMEN: Soft and protuberant. EXTREMITIES: Trace pedal edema. No clubbing or peripheral cyanosis. NEUROLOGIC: Intact. No lateralizing signs. LABORATORY DATA: H and H of 10.3 and 31.8. Normal white count. Chest x-ray, diffuse pulmonary consolidation compatible with multifocal pneumonia with diffuse alveolar damage, cardiomegaly with suspected underlying interstitial disease compatible with coal miners pneumoconiosis. Rule out right paratracheal adenopathy. OVERALL ASSESSMENT: This patient is a 73-year-old male with severe end-stage chronic obstructive pulmonary disease, occupational pneumoconiosis with acute respiratory failure x3, currently post-extubation, but extremely weak with a very poor performance status. Unfortunately to be evaluated for lung transplantation is a long and arduous process and requires a modest degree of performance capability and underlying respiratory stability which this patient currently is not exhibiting. Certainly, this can be reassessed at a later date. If the patient were to make significant recovery, we would be happy to see him in consultation and make the referral if his performance status improves. JENIFER
[2019-03-28] MEDS: LEVALBUTEROL HCL 0.63 MG/3 ML NEB INH SCH ×5 (04:04→23:10)
[2019-03-28] MEDS ORDERED: SODIUM CHLORIDE 0.65% NA SOLN 45 ML (OCEAN) ONE (04:34)
[2019-03-28 05:15] LABS: Hematocrit (blood only) 32.2 % (42-52); Hemoglobin 10.9 g/dL (14.0-18.0); Mean Corpuscular Hgb Conc 33.9 g/dL (32-36); Mean Corpuscular Volume 101.3 fL (80-100); Mean Platelet Volume 8.9 fL (7.4-10.4); Platelet Count 105 K/uL (130-400); RDW Coefficient of Variation 12.9 % (11.5-14.5); RDW Standard Deviation 47.8 fL (36.4-46.3); Red Blood Count 3.18 M/uL (4.7-6.1); White Blood Count 10.99 K/uL (4.8-10.8)
[2019-03-28 05:29] LABS: Partial Thromboplastin Time 55.4 Seconds (21.0-31.0)
[2019-03-28 05:37] LABS: BUN Creatinine Ratio 56.4 (10-20); Calcium 8.4 mg/dl (8.5-10.1); Creatinine Clr Calc Pharmacy 107.5 ml/min; Est GFR (African American) 114.8; Est GFR (Non-African American) 99.1; Magnesium 2.2 mg/dl (1.8-2.4); Potassium 3.8 mmol/L (3.5-5.1)
[2019-03-28 05:41] LABS: Phosphorus 2.5 mg/dl (2.5-4.9)
--- NOTE | 2019-03-28 06:59 | XRay Report ---
XR chest 1V portable HISTORY: 73 years-old Male f/u follow-up study in a patient with respiratory failure COMPARISON: Chest radiograph 03/27/2019, CTA chest 03/22/2019 TECHNIQUE: Portable AP view of the chest FINDINGS: Cardiomediastinal and hilar silhouettes are unchanged. Calcification the thoracic aortic arch. Enteri c tube is noted, distal tip extending outside the [id number] below the level of the diaphragm. No pneumothorax or large pleural effusion. Unchanged bilateral extensive mixed interstitial and alveolar opacities with background emphysema. Degenerative changes of the shoulders and spine. IMPRESSION: 1. Stable exam with persistent extensive bilateral mixed interstitial and alveolar opacities. 2. Emphysema. 3. Cardiomegaly. The above report was generated using voice recognition software. It may contain grammatical, syntax o r spelling errors. Electronically signed by: Nikita Hodges M.D. 03/28/2019 6:57 AM
[2019-03-28] MEDS: DOXYCYCLINE HYCLATE 100 MG in DEXTROSE 5% 100 ML IV SCH ×2 (08:22→22:31)
[2019-03-28] MEDS: FAMOTIDINE 20 MG TAB PO SCH ×2 (08:22→23:01)
[2019-03-28] MEDS: predniSONE 20 MG TAB PO SCH (08:22)
[2019-03-28] MEDS: METOPROLOL TARTRATE 50 MG TAB PO SCH ×3 (08:22→23:00)
[2019-03-28] MEDS: ASPIRIN 81 MG CHEW GT SCH (08:22)
[2019-03-28] MEDS: INSULIN ASPART 100 UNITS/ML 3 ML PEN SC SCH ×4 (08:23→23:20)
[2019-03-28] MEDS ORDERED: FIBERSOURCE HN 1.2 CAL 1000 ML BAG NG SCH (09:00)
[2019-03-28] MEDS: Heparin Adult STANDARD Wt-Based Dextrose 5% 25,000 units/500 mL IV SCH (11:10)
[2019-03-28] MEDS ORDERED: MINERAL OIL 30 ML UDC PO ONE (11:22)
[2019-03-28 12:18] LABS: iSTAT Allen Test Pass; iSTAT Arterial Blood Gas HCO3 37 meg/L (19-24); iSTAT Arterial Blood Gas pCO2 52 mmHg (35-46); iSTAT Arterial Blood Gas pH 7.47 (7.35-7.45); iSTAT Carbon Dioxide 39 mEq/l (24-31); iSTAT FiO2 80 %; iSTAT Site R Radial
[2019-03-28 12:31] LABS: iSTAT Arterial Blood Gas HCO3 34 meg/L (19-24); iSTAT Arterial Blood Gas pCO2 48 mmHg (35-46); iSTAT Arterial Blood Gas pH 7.46 (7.35-7.45); iSTAT Carbon Dioxide 36 mEq/l (24-31); iSTAT FiO2 80 %; iSTAT Site R Brachial
--- NOTE | 2019-03-28 15:36 | Critical Care Progress Note ---
Date of Service March 28, 2019 Assessment & Plan (1) Admitted to intensive care unit: 73-year-old male with acute on chronic respiratory failure in the setting of likely pulmonary fibrosis with acute ARDS requiring endotracheal intubation for adequate oxygenation. NEURO - * CAM negative CARDIAC/VASCULAR - * NSTEMI: Improved * Likely secondary to intrinsic lung disease * A-Fib: * Increased diltiazem NG 90 mg of the immediate release, metoprolol 50 TID; RESPIRATORY - * Acute on chronic hypoxic respiratory failure: * No significant change in pulmonary status * Stable radiograph * On 3 L oxygen at baseline: Currently requiring high flow nasal cannula: 40 L 100% * Diurese for negative balance * Prednisone 40 mg * De-escalate to doxycycline as single agent * Nebs Q6 GI/NUTRITION - * Passed bedside swallow study * Prophylaxis: Famotadine * Significant desaturation with work of eating, will place course safe and facilitate supplemental feeding -Fiber source to 10 mL's continuous for supplemental feeding -Calorie counts added as patient has not consumed any nutrition today secondary to dyspnea RENAL/LYTES / * Judd in place - Strict I&Os. -40 mg Lasix today with 40 M EQ potassium chloride -Goal net negative balance ENDO - * No h/o DM or Thyroid Dz * BSGs per unit protocol. ISS --> gtt per unit policy. HEME - * Heparin for atrial fibrillation * Long-term systemic anticoagulation ID - * Bilateral Lower Lobe Pneumonia: * De-escalation to doxycycline LINES/IV ACCESS - * PIVs x2 * Judd DVT PROPHYLAXIS - * Heparin infusion for atrial fibrillation with rapid ventricular response * SCDs Patient was discussed in multidisciplinary rounds. Dr. Hinojosa was resident physician during care of patient. I separately evaluated patient for unger portions of the history and the exam. I was present during the critical portion of medical decision making, and I discussed the case with the resident. I generally agree with the findings and plan. Had extensive discussion with the patient and yesterday at bedside patient to remain full code would agree with trial of intubation however would not want long-term mechanical ventilation or tracheostomy. If patient unable to tolerate BiPAP or worsening oxygen requirement would proceed with intubation. We have not had any significant improvement in the last 24 hours, I am concerned about the overall prognosis, in the last year the patient has gone from 1 L of oxygen to requiring 3 L, currently he is largely unable to take adequate nutrition secondary to dyspnea. He still requiring 100% FiO2, and concern for induced oxygen toxicity. Our goal will be to discuss current condition and prognosis with palliative care and consider intubation and bronchoscopy to evaluate for additional organisms, will add procalcitonin, bronchoscopy to assist with any secretion clearance. I have personally spent 40 minutes of critical care time in the direct management of this patient. This is a life/limb threatening event. This includes time spent evaluating patient, direct bedside care, chart review, placing orders, interpretation of diagnostic studies, discussion with consultants, patient, and/or family members regarding treatment decisions, as well as other required patient management activities. This time is exclusive of all separately billable procedures, and teaching time and separate from and in addition to any other critical care service time. (2) Acute and chronic respiratory failure with hypoxia: (3) Interstitial lung disease: (4) Hypertension: (5) Congestive heart failure: (6) Atrial fibrillation with RVR: (7) Community acquired pneumonia: (8) ARDS (adult respiratory distress syndrome): Supervising Physician Co-Signing Physician Notes Had extensive discussion with patient, patient's , and [facility] palliative care. Patient has not had significant improvement in pulmonary status, he does not want a trial of intubation anymore, he would not want heroic measures undertaken in event of cardiac arrest. He is currently requiring significant oxygen requirements with high flow oxygen and that essentially precludes him from placement in facilities that he would be willing to go to. His overarching goal was to return home, he would prefer to transition to more of a palliative care and focus on comfort with the goal to return home versus aggressive treatment for significant improvement. Accordingly we will make the patient DNR/DNI, we are not providing high intensity therapies that can be provided at a different level of care and he would be appropriate for downgrade out of the ICU. Subjective Mr. Gonzalez is doing well this morning, somewhat flatter affect but able to converse without too much difficulty. Tells me he feels well. No new complaints Review of Systems Constitutional: no fever and no chills Respiratory: no cough and no dyspnea Cardiovascular: no chest pain, no dyspnea and no palpitations Gastrointestinal: no nausea and no vomiting Physical Exam Constitutional: + overweight; no acute distress Respiratory: + uses accessory muscles Auscultation: + crackles and + rhonchi Cardiovascular: Rate/Rhythm: regular rate and regular rhythm Heart Sounds: no click, no gallop, no murmur and no cardiac rub Gastrointestinal (Abdomen): Inspection/Auscultation: abdomen normal to inspection; abdomen not distended Percussion/Palpation: abdomen soft Neurologic: deep tendon reflexes 2+ bilaterally and moves all extremities Motor/Sensory: normal movement Results & Data Vital Signs (Past 12 Hours) Vital Signs Temp Pulse Pulse Resp BP Pulse Ox 03/28/19 05:00 92 H 28 H 79 L 03/28/19 04:04 76 22 96 03/28/19 04:00 36.9 C 85 26 H 139/67 92 03/28/19 03:00 76 17 130/54 L 95 03/28/19 02:00 70 19 129/57 L 94 03/28/19 01:00 70 19 106/55 L 93 03/28/19 00:00 69 20 118/58 L 90 03/27/19 23:50 66 24 91 03/27/19 23:23 66 24 91 03/27/19 23:00 65 20 116/54 L 90 03/27/19 22:00 77 21 127/57 L 92 03/27/19 21:00 82 20 127/58 L 89 L 03/27/19 20:05 77 22 92 03/27/19 20:04 77 22 92 03/27/19 20:00 37.1 C 71 20 91 03/27/19 19:00 76 21 123/59 L 89 L Critical Care Time Critical Care Time: Yes Total Critical Care Time: 40 Resident Activity Tracking Resident Involvement: Resident Care Provided Care Provided: Adult Hospital Medicine
[2019-03-28] MEDS ORDERED: POTASSIUM CHLORIDE 20 MEQ/15 ML UDC PO STA (15:43)
[2019-03-28] MEDS ORDERED: FUROSEMIDE 40 MG in SYRINGE 0 ML IV ONE (16:00)
--- NOTE | 2019-03-28 16:36 | Palliative Care Progress Note ---
Date of Service March 28, 2019 Assessment & Plan (1) Goals of care, counseling/discussion: -Patient discussed at ICU rounds today. -Has not made progress on oxygen requirements. Remains tachypneic and dyspneic even while just lying in bed. -On high flow nasal cannula at 40LPM and 100% FiO2. Oxygen saturation in low 90s and drops to low 80s while he is talking. -Doc discussion with patient and his rodirgo , Isabel. -Patient does not want to have the breathing tube put back in at this point. If he worsens, likely would transition to comfort measures. He also does not want CPR if his heart stops. At this point, will transition to DO NOT RESUSCITATE. His Isabel is in agreement. -Plan is to continue with current medical treatment. NO ESCALATION IN CARE. -Goal is to wean oxygen therapy as tolerated by the patient, to a level that could be managed at home. If patient is unable to wean due to dropping oxygen saturations, treat symptomatically despite secondary side effects. Again, main goal is for comfort and for patient to get home. -patient would not consider transferring to LTACH at this point. (2) Acute and chronic respiratory failure with hypoxia: (3) Interstitial lung disease: (4) Community acquired pneumonia: Subjective Patient doing about the same today. Still very SOB at rest in bed. at bedside. Review of Systems Review of Systems: C/O SOB at rest. No chest pain, pain or N/V. Physical Exam Constitutional: + overweight; no acute distress Neck: + thick neck Respiratory: normal respiratory effort Auscultation: + diminished lung sounds and + rhonchi (coarseness somewhat improved) Cardiovascular: Rate/Rhythm: + abnormal rate and + abnormal rhythm Extremities: + edema (generalized edema) Gastrointestinal (Abdomen): Inspection/Auscultation: normal bowel sounds Percussion/Palpation: abdomen soft Neurologic: moves all extremities and awake Psychiatric: Orientation: alert and oriented x 3 (but does have periods of confusion) Results & Data Vital Signs (Past 12 Hours) Vital Signs Temp Pulse Pulse Resp BP BP Pulse Ox 03/28/19 16:00 82 03/28/19 15:30 88 26 H 90 03/28/19 13:00 84 23 132/66 92 03/28/19 12:00 36.6 C 87 83 27 H 132/68 132/68 81 L 03/28/19 11:18 84 20 89 L 03/28/19 11:16 84 20 90 03/28/19 11:00 83 22 132/64 89 L 03/28/19 10:00 81 22 132/70 91 03/28/19 09:00 86 21 126/65 90 03/28/19 08:00 37.1 C 103 H 99 H 25 H 120/67 153/80 H 85 L 03/28/19 07:39 22 88 L 03/28/19 07:38 88 L 03/28/19 07:00 103 H 24 153/80 H 92 03/28/19 06:00 93 H 23 157/65 H 94 03/28/19 05:00 92 H 28 H 79 L Supervising Physician Co-Signing Physician Notes Patient seen and examined, patient's and daughter at bedside. Patient continues to require high flow nasal cannula-at 55% O2. Patient and family's goal is to try and get home. Both patient and family understand that patient will not be able to go home on high flow nasal cannula. Collaborated with Nat Greer as well as attending physician Dr. Loo regarding trying to wean O2 slowly. Will need to discuss further options if patient is unable to wean from O2. PE: Patient appears comfortable at rest HEENT: EOMI, hearing within normal limits Respirations: Comfortable at rest, on high flow nasal cannula, diminished breath sounds bilaterally CV: Regular rate Abdomen: Not distended Extremities: Generalized weakness Agree with above note, assessment and plan as per KRISTIN Henley-will continue to follow and assist with medical decision making. Time Spent Midlevel 40 minutes with >50% of the time spent at bedside with patient and family discussing condition and GOC. Attending Total time spent 25 minutes in addition to the 40 minutes spent by KRISTIN Lang for a total of 65 minutes with greater than 50% of the time spent at bedside discussing plan of care as well as goals of care.
--- NOTE | 2019-03-28 22:22 | Hospitalist Progress Note ---
Date of Service March 28, 2019 Assessment & Plan (1) Community acquired pneumonia: Bilateral. Treated with Rocephin and azithromycin from March 19 through admission now switched to cefepime and vancomycin. doxycycline added Sputum culture at [facility] on March 19 revealed moderate gram-positive cocci in pairs, chains, clusters. Patient appears to have responded to the lasix. Will order a one time dose today and recheck in AM. Patient remains on doxycycline as single agent Patient has been extubated and was weaned off bipap. Now is on high flow oxygen. Diffciutly weaning off oxygen which is a problem as patient wants to go home Palliative care is involved. May turn to comfort if unable to wean off oxygen. Pulmonary is also consulted. Patient will be transferred out of the ICU today. Patient and are in agreement with no escalation of care. (2) Acute on chronic respiratory failure: Patient will be weaned off vent on 03/26 (3) Atrial fibrillation with RVR: Cardioverted after DERICK at [facility] and now in normal sinus rhythm. Currently on diltiazem and metoprolol to maintain normal sinus rhythm. (4) Congestive heart failure: Patient appears with crackles and x-ray changes however these appear to be more ARDS pulmonary fibrosis type and heart failure at this point in time, defined heart failure is not diagnosed at this time (5) Hypertension: Prior to hospitalization he was treated at home with amlodipine, metoprolol, diltiazem B/P appears to be at goal for now. On diltiazem and metoprolol. 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 Diffuse interstitial lung disease noted on CT scan (7) COPD exacerbation: Bronchodilators and intravenous Solu-Medrol (8) DVT prophylaxis: Lovenox subcu stopped Placed on heparin hold Eliquis Subjective Patient reports being comfortable on his high flow oxygen. He understands he will be transferred today out of the ICU. His is at bedside and is updated. He reports he no longer wants to be intubated. He reports no new complaints. Review of Systems Review of Systems: Constitutional: + fatigue and + weakness Eyes: no discharge and no eye pain Ear, Nose, Mouth, Throat: no ear pain Respiratory: no cough Cardiovascular: no chest pain and no radiating jaw, neck or arm pain Gastrointestinal: no abdominal pain Genitourinary: no dysuria Musculoskeletal: no back pain Integumentary: no acne Psychiatric: no behavioral changes Endocrine: + fatigue Physical Exam Physical Exam: The patient is resting in bed on high flow nasal cannula. Vital signs as documented. Head exam is unremarkable. normocephalic, atraumatic Neck is without jugular venous distension, trachea is midline Lungs are difficult to auscultate anteriorly. Lung sounds are coarse. Cardiac exam reveals Rhythm is regular. Abdominal exam reveals hypoactive bowel sounds, Extremities are nonedematous and both pedal pulses are present Neurologic exam is awake alert orient to person place. Skin is warm / Dry Results & Data Vital Signs (Past 12 Hours) Vital Signs Temp Pulse Pulse Resp BP BP BP 03/28/19 19:06 85 22 03/28/19 18:48 36.9 C 87 28 H 153/71 H 03/28/19 16:00 82 03/28/19 15:30 88 26 H 03/28/19 15:00 36.6 C 78 24 122/64 03/28/19 13:00 84 23 132/66 03/28/19 12:00 36.6 C 87 83 27 H 132/68 132/68 03/28/19 11:18 84 20 03/28/19 11:16 84 20 03/28/19 11:00 83 22 132/64 Pulse Ox 03/28/19 19:06 96 03/28/19 18:48 89 L 03/28/19 16:00 03/28/19 15:30 90 03/28/19 15:00 90 03/28/19 13:00 92 03/28/19 12:00 81 L 03/28/19 11:18 89 L 03/28/19 11:16 90 03/28/19 11:00 89 L
[2019-03-28] MEDS: TERAZOSIN HCL 5 MG CAP PO SCH (23:00)
[2019-03-29] MEDS ORDERED: Nursing to Pharmacy Communication ONE (02:19)
[2019-03-29] MEDS: Heparin Adult STANDARD Wt-Based Dextrose 5% 25,000 units/500 mL IV SCH (02:41)
[2019-03-29] MEDS: LEVALBUTEROL HCL 0.63 MG/3 ML NEB INH SCH ×6 (03:43→23:57)
[2019-03-29] MEDS ORDERED: LORazepam 1 MG/2 ML VIAL IV ONE (04:45)
[2019-03-29] MEDS: dilTIAZem HCl 60 MG TAB PO SCH ×3 (05:59→17:35)
[2019-03-29 06:51] LABS: Partial Thromboplastin Ratio 1.9
[2019-03-29 07:01] LABS: Partial Thromboplastin Time 52.8 Seconds (21.0-31.0)
[2019-03-29 07:07] LABS: BUN Creatinine Ratio 38.4 (10-20); Calcium 8.7 mg/dl (8.5-10.1); Creatinine Clr Calc Pharmacy 97.7 ml/min; Est GFR (African American) 110.4; Est GFR (Non-African American) 95.2
[2019-03-29] MEDS: INSULIN ASPART 100 UNITS/ML 3 ML PEN SC SCH ×4 (09:19→21:07)
[2019-03-29] MEDS: DOXYCYCLINE HYCLATE 100 MG in DEXTROSE 5% 100 ML IV SCH ×2 (09:20→21:11)
[2019-03-29] MEDS: FAMOTIDINE 20 MG TAB PO SCH ×2 (10:07→21:08)
[2019-03-29] MEDS: METOPROLOL TARTRATE 50 MG TAB PO SCH ×3 (10:08→21:08)
[2019-03-29] MEDS: ASPIRIN 81 MG CHEW GT SCH (10:09)
[2019-03-29] MEDS: predniSONE 20 MG TAB PO SCH (10:09)
[2019-03-29 11:39] LABS: Angiotensin Converting Enzyme 18 U/L (9-67); Anti Nuclear Antibody Screen NEGATIVE (NEGATIVE); Myeloperoxidase Ab <1.0 AI (<1.0)
[2019-03-29] MEDS ORDERED: FUROSEMIDE 40 MG/4 ML VIAL IV STA (14:32)
[2019-03-29] MEDS ORDERED: ACETAMINOPHEN 325 MG TAB PO PRN (14:53)
[2019-03-29] MEDS ORDERED: STOP HEPARIN DRIP ORDER ONE (15:15)
[2019-03-29] MEDS ORDERED: ENOXAPARIN 1.5 MG/KG SQ SCH (15:30)
--- NOTE | 2019-03-29 15:33 | Pharmacy Report ---
Pharmacy Glycemic Short Note 2 - Date of Service March 29, 2019 - Glycemic Short BSG Results (Last 24 hours): 03/28/19 03/28/19 03/29/19 16:18 22:00 05:49 Glucose 126 H POC Glucose 224 H 116 H 03/29/19 03/29/19 08:07 11:40 Glucose POC Glucose 196 H 186 H Assessment & Plan: ASSESSMENT: 03/29/19: * Patient received total of 3 units of Novolog insulin yesterday at dinner time which corrected him to 116 at HS. * Per nurse, patient has been refusing most of his meals but he has been getting some pudding/ice cream sometimes which is not documented as carbs given within the Novolog entry. * At this time will continue loose Novolog coverage with CF 30 and CR 20. * Dinner time BSGs will continue to be elevated because of the Prednisone 40 mg dose that he gets in the AM. * Patient's HbA1c = 5.4% on 03/25/19 and he has been requiring very little insulin. Will continue with current Novolog parameters. PLAN FOR INPATIENT GLYCEMIC CONTROL: * Basal insulin - none at this time * Bolus insulin: continue * NovoLog per scale ACHS or Q6hrs while NPO * Goal Range: Low 120 mg/dL - High 160 mg/dL * Correction Factor: 30 mg/dL/unit * Carb Ratio: 1 unit for 20 gm of CHO consumed.
[2019-03-29] MEDS ORDERED: ENOXAPARIN INJ 120 MG/0.8 ML SYR SQ SCH (16:00)
[2019-03-29] MEDS ORDERED: FUROSEMIDE 40 MG in SYRINGE 0 ML IV SCH (16:15)
[2019-03-29] MEDS: TERAZOSIN HCL 5 MG CAP PO SCH (21:08)
--- NOTE | 2019-03-29 23:07 | Hospitalist Progress Note ---
Date of Service March 29, 2019 Assessment & Plan (1) Community acquired pneumonia: Bilateral. Treated with Rocephin and azithromycin from March 19 through admission now switched to cefepime and vancomycin. doxycycline added Sputum culture at [facility] on March 19 revealed moderate gram-positive cocci in pairs, chains, clusters. Patient appears to have responded to the lasix. Will order a one time dose today and recheck in AM. (03/29) Patient remains on doxycycline as single agent Patient has been extubated and was weaned off bipap. Now is on high flow oxygen. Difficulty weaning off oxygen which is a problem as patient wants to go home Currently on 55 liters Palliative care is involved. May turn to comfort if unable to wean off oxygen. Pulmonary is also consulted. Family is updated. Patient and are in agreement with no escalation of care. (2) Acute on chronic respiratory failure: Patient will be weaned off vent on 03/26 (3) Atrial fibrillation with RVR: Cardioverted after DERICK at [facility] and now in normal sinus rhythm. Currently on diltiazem and metoprolol to maintain normal sinus rhythm. (4) Congestive heart failure: Patient appears with crackles and x-ray changes however these appear to be more ARDS pulmonary fibrosis type and heart failure at this point in time, defined heart failure is not diagnosed at this time (5) Hypertension: Prior to hospitalization he was treated at home with amlodipine, metoprolol, diltiazem B/P appears to be at goal for now. On diltiazem and metoprolol. 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 Diffuse interstitial lung disease noted on CT scan (7) COPD exacerbation: Bronchodilators and intravenous Solu-Medrol (8) DVT prophylaxis: Lovenox subcu resumed. stopped lovenox hold Eliane Spent 35 minutes in management of patient. This included discussion with consultants, family and patient. Subjective Patient is a 73 yo male who does not report worsening symptoms today. He continues to require high flow oxygen. There was a moment where he just wanted to give up as per nursing staff, but then he felt somewhat better once I arrived. He denies any new symptoms. Review of Systems Review of Systems: All systems reviewed & are unremarkable except as noted in HPI & below Physical Exam Physical Exam: The patient is resting in bed on high flow nasal cannula. Vital signs as documented. Head exam is unremarkable. normocephalic, atraumatic Neck is without jugular venous distension, trachea is midline Lungs are difficult to auscultate anteriorly. Lung sounds are coarse. Cardiac exam reveals Rhythm is regular. Abdominal exam reveals hypoactive bowel sounds, Extremities are nonedematous and both pedal pulses are present Neurologic exam is awake alert orient to person place. Skin is warm / Dry Results & Data Vital Signs (Past 12 Hours) Vital Signs Temp Pulse Pulse Resp BP Pulse Ox 03/29/19 19:25 80 22 86 L 03/29/19 15:57 82 22 86 L 03/29/19 15:52 37.0 C 87 116/68 83 L 03/29/19 11:44 80 22 93 03/29/19 11:43 81 22 93
[2019-03-30] MEDS: dilTIAZem HCl 60 MG TAB PO SCH ×4 (00:18→17:45)
[2019-03-30] MEDS: LEVALBUTEROL HCL 0.63 MG/3 ML NEB INH SCH ×6 (03:14→23:03)
[2019-03-30 06:26] LABS: Hematocrit (blood only) 28.3 % (42-52); Hemoglobin 9.8 g/dL (14.0-18.0); Mean Corpuscular Hgb Conc 34.6 g/dL (32-36); Mean Corpuscular Volume 100.4 fL (80-100); Mean Platelet Volume 8.9 fL (7.4-10.4); Nucleated RBC # (auto) 0.04 K/uL (0-0); Nucleated RBC % (auto) 0.2 %; Platelet Count 121 K/uL (130-400); RDW Coefficient of Variation 13.1 % (11.5-14.5); RDW Standard Deviation 47.7 fL (36.4-46.3); Red Blood Count 2.82 M/uL (4.7-6.1); White Blood Count 17.32 K/uL (4.8-10.8)
[2019-03-30] MEDS: METOPROLOL TARTRATE 50 MG TAB PO SCH ×3 (08:16→21:35)
[2019-03-30] MEDS: predniSONE 20 MG TAB PO SCH (08:16)
[2019-03-30] MEDS: FAMOTIDINE 20 MG TAB PO SCH ×2 (08:16→21:35)
[2019-03-30] MEDS: ASPIRIN 81 MG CHEW GT SCH (08:19)
[2019-03-30] MEDS: DOXYCYCLINE HYCLATE 100 MG in DEXTROSE 5% 100 ML IV SCH (08:19)
[2019-03-30] MEDS: INSULIN ASPART 100 UNITS/ML 3 ML PEN SC SCH ×2 (08:42→11:35)
--- NOTE | 2019-03-30 09:12 | XRay Report ---
XR chest 1V portable HISTORY: Shortness of breath. COMPARISON: Chest 03/28/2019. FINDINGS: No pneumothorax. No pleural effusions. The heart remains mildly enlarged. Diffuse interstit ial and alveolar airspace opacities have slightly progressed. IMPRESSION: Slight progression of the bilateral airspace opacities. Electronically signed by: Shahab Martinez M.D. 03/30/2019 9:11 AM
[2019-03-30] MEDS ORDERED: MoRPHine SULFATE 5 MG/0.25 ML UDP PO PRN ×2 (10:52→14:22)
--- NOTE | 2019-03-30 11:20 | Palliative Care Progress Note ---
Date of Service March 30, 2019 Assessment & Plan (1) Goals of care, counseling/discussion: -Spoke at length with patient in room 420, and his Isabel by phone, this morning. -Patient states, "I'm done fighting. I'm dying and I know I'm not going to make it home." -Per patient's wishes, he would like to transition to comfort measures only. His wish is to get back home on hospice, but he doesn't think he will make it. He is certainly not stable for transfer at this time. -Plan is to stop all lab draws and medications unrelated to comfort. Will continue most of his oral medications at this time, but if he gets to the point of not wanting/being able to take them, that is okay. -Start Roxanol 5mg PO/SL Q3h PRN pain or SOB. Patient and family counseled on the secondary side effects of morphine such as sedation and respiratory depression. -Once patient is more comfortable and less SOB, please wean his oxygen down as tolerated for comfort. If patient is only comfortable on the high-flow nasal cannula, that's fine, but he will indefinitely have to stay in hospital if on high-flow. Maximum amount that can usually be done as outpatient is 10LPM. -Lorazepam 0.5mg PO Q4h PRN anxiety/agitation. (2) Acute and chronic respiratory failure with hypoxia: (3) Interstitial lung disease: (4) Community acquired pneumonia: Subjective Patient had a "rough" night. He did wear the bipap per his request for comfort. He remains SOB and hypoxic on high-flow nasal cannula. Oxygen saturations drop into 60s at times. Review of Systems Review of Systems: C/o increased SOB, tired, weakness. Denies CP, pain, N/V, or anxiety. Physical Exam Constitutional: + overweight ENMT: external ear and nose normal, oropharynx normal Neck: + thick neck Respiratory: normal respiratory effort Auscultation: + diminished lung sounds and + rhonchi Cardiovascular: Rate/Rhythm: + tachycardic; + abnormal rate and + abnormal rhythm Extremities: + edema (generalized edema) Gastrointestinal (Abdomen): Inspection/Auscultation: normal bowel sounds Percussion/Palpation: abdomen soft Neurologic: moves all extremities and awake Psychiatric: Orientation: alert and oriented x 3 Results & Data Vital Signs (Past 12 Hours) Vital Signs Temp Pulse Pulse Pulse Resp BP BP 03/30/19 07:05 88 28 H 03/30/19 07:03 88 28 H 03/30/19 07:00 36.9 C 129 H 24 106/59 L 03/30/19 05:36 03/30/19 05:01 145 H 106/63 03/30/19 03:14 84 24 03/30/19 03:12 84 24 03/30/19 00:08 36.9 C 80 22 113/65 03/29/19 23:57 78 22 Pulse Ox 03/30/19 07:05 92 03/30/19 07:03 92 03/30/19 07:00 94 03/30/19 05:36 93 03/30/19 05:01 65 L 03/30/19 03:14 94 03/30/19 03:12 93 03/30/19 00:08 84 L 03/29/19 23:57 90 Supervising Physician Co-Signing Physician Notes Patient seen and examined on 2 separate visits today. Initial visit patient's f amily at bedside including his son, , granddaughter and great grandson. Patient with increased work of breathing-requiring PRN Roxanol more frequently for comfort. Patient also received PRN Ativan. Patient had an episode while he was at bedside of decreased responsiveness and dusky coloring-went to place BiPAP-patient refused. On second visit after patient received additional Roxanol and Ativan-patient's breathing much less labored, patient resting comfortably, easily aroused. Patient currently on comfort care PE: On second visit, resting comfortably, NAD HEENT: EOMI, mild [place] Respirations few rhonchi right base, coarse breath sounds bilaterally, unlabored after Roxanol and Ativan CV: Tachycardic, 1+ pedal edema Abdomen: Soft, nontender Extremities,:No mottling Will change patient's Roxanol to every 15 minutes as needed 5 mg sublingual, increase Ativan to every 2 hours as needed Agree with above note, assessment and plan as per KRISTIN Henley- discussed end-of-life issues at length with family at bedside. Time Spent Midlevel 40 minutes with >50% of the time spent at bedside with patient and family discussing condition and GOC. Attending Time spent on 2 separate visits 50 minutes in addition to the 40 minutes spent by KRISTIN Lang for a total of 90 minutes with greater than 50% of the time spent at bedside assessing patient's current status as well as comfort and discussing end-of-life issues with family
[2019-03-30] MEDS ORDERED: LORazepam 1 MG TAB SL PRN ×2 (11:21→15:42)
[2019-03-30] MEDS ORDERED: MoRPHine SULFATE 5 MG/0.25 ML UDP ONE ×2 (11:31→14:27)
[2019-03-30] MEDS ORDERED: INSULIN ASPART 100 UNITS/ML 3 ML PEN SC SCH (12:00)
--- NOTE | 2019-03-30 13:33 | Hospitalist Progress Note ---
Date of Service March 30, 2019 Assessment & Plan (1) Community acquired pneumonia: Bilateral. Treated with Rocephin and azithromycin from March 19 through admission now switched to cefepime and vancomycin. doxycycline added Sputum culture at [facility] on March 19 revealed moderate gram-positive cocci in pairs, chains, clusters. Patient continues to require high amount of oxygen. Patient is open to getting a repeat ABG, eventhough it may be painful to assess oxygen level. Patient remains on doxycycline as single agent Patient has been extubated and was weaned off bipap.. Difficulty weaning off oxygen which is a problem as patient wants to go home Currently on 55 liters Palliative care is involved. May turn to comfort if unable to wean off oxygen. Pulmonary is also consulted Update: Patient reports to palliative care team that he no longer wants any testing and understands it margaret be dificult to go home. Patient will be transitioned to comofrt care. Family is updated. Patient and are in agreement with no escalation of care. (2) Acute on chronic respiratory failure: Patient will be weaned off vent on 03/26 (3) Atrial fibrillation with RVR: Cardioverted after EDRICK at [facility] and now in normal sinus rhythm. Currently on diltiazem and metoprolol to maintain normal sinus rhythm. (4) Congestive heart failure: Patient appears with crackles and x-ray changes however these appear to be more ARDS pulmonary fibrosis type and heart failure at this point in time, defined heart failure is not diagnosed at this time (5) Hypertension: Prior to hospitalization he was treated at home with amlodipine, metoprolol, diltiazem B/P appears to be at goal for now. On diltiazem and metoprolol. 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 Diffuse interstitial lung disease noted on CT scan (7) COPD exacerbation: Bronchodilators and intravenous Solu-Medrol (8) DVT prophylaxis: Lovenox subcu resumed. stopped lovenox hold Eliane Spent 35 minutes in management of patient. \ Subjective Patient was seen in the AM. Patient reports not feeling better. He understands that he still requires a large amount of oxygen. Patient is okay for additional testing at this time. Patient understands that IT may be difficult for him to go home. will to check for a few more days. Patiet continues to be shot of breath. Review of Systems Review of Systems: All systems reviewed & are unremarkable except as noted in HPI & below Physical Exam Physical Exam: The patient is resting in bed on high flow nasal cannula. Vital signs as documented. Head exam is unremarkable. normocephalic, atraumatic Neck is without jugular venous distension, trachea is midline Lungs are difficult to auscultate anteriorly. Lung sounds are coarse. Cardiac exam reveals Rhythm is regular. Abdominal exam reveals hypoactive bowel sounds, Extremities are nonedematous and both pedal pulses are present Neurologic exam is awake alert orient to person place. Skin is warm / Dry Results & Data Vital Signs (Past 12 Hours) Vital Signs Temp Pulse Pulse Pulse Resp BP Pulse Ox 03/30/19 11:06 103 H 26 H 86 L 03/30/19 07:05 88 28 H 92 03/30/19 07:03 88 28 H 92 03/30/19 07:00 36.9 C 129 H 24 106/59 L 94 03/30/19 05:36 93 03/30/19 05:01 145 H 106/63 65 L 03/30/19 03:14 84 24 94 03/30/19 03:12 84 24 93
[2019-03-30] MEDS: MoRPHine SULFATE 5 MG/0.25 ML UDP PO PRN ×2 (17:45→23:26)
[2019-03-30] MEDS: TERAZOSIN HCL 5 MG CAP PO SCH (21:34)
[2019-03-31] MEDS: dilTIAZem HCl 60 MG TAB PO SCH ×4 (00:34→17:39)
[2019-03-31] MEDS: MoRPHine SULFATE 5 MG/0.25 ML UDP PO PRN ×5 (01:24→20:57)
[2019-03-31] MEDS: LEVALBUTEROL HCL 0.63 MG/3 ML NEB INH SCH ×2 (03:30→07:34)
[2019-03-31] MEDS ORDERED: MoRPHine SULFATE 2 MG/ML CARP IV STA (03:57)
[2019-03-31] MEDS: LORazepam 0.5 MG/1 ML VIAL IV PRN ×4 (03:57→20:57)
[2019-03-31] MEDS: ASPIRIN 81 MG CHEW GT SCH (08:14)
[2019-03-31] MEDS: METOPROLOL TARTRATE 50 MG TAB PO SCH ×3 (08:14→20:58)
[2019-03-31] MEDS: predniSONE 20 MG TAB PO SCH (08:14)
[2019-03-31] MEDS: FAMOTIDINE 20 MG TAB PO SCH ×2 (08:14→20:58)
[2019-03-31] MEDS ORDERED: LEVALBUTEROL HCL 0.63 MG/3 ML NEB INH PRN (09:33)
[2019-03-31] MEDS: TERAZOSIN HCL 5 MG CAP PO SCH (20:58)
--- NOTE | 2019-03-31 23:49 | Hospitalist Progress Note ---
Date of Service March 31, 2019 Assessment & Plan (1) Community acquired pneumonia: Bilateral. Treated with Rocephin and azithromycin from March 19 through admission now switched to cefepime and vancomycin. doxycycline added Sputum culture at [facility] on March 19 revealed moderate gram-positive cocci in pairs, chains, clusters. Patient continues to require high amount of oxygen. Patient is open to getting a repeat ABG, eventhough it may be painful to assess oxygen level. Patient remains on doxycycline as single agent Patient has been extubated and was weaned off bipap.. Difficulty weaning off oxygen which is a problem as patient wants to go home Currently on 55 liters Palliative care is involved. May turn to comfort if unable to wean off oxygen. Pulmonary is also consulted Update: Patient reports to palliative care team that he no longer wants any testing and understands it margaret be dificult to go home. Patient will be transitioned to comofrt care. Family is updated. Patient and are in agreement with no escalation of care. (2) Acute on chronic respiratory failure: Patient will be weaned off vent on 03/26 (3) Atrial fibrillation with RVR: Cardioverted after DERICK at [facility] and now in normal sinus rhythm. Currently on diltiazem and metoprolol to maintain normal sinus rhythm. (4) Congestive heart failure: Patient appears with crackles and x-ray changes however these appear to be more ARDS pulmonary fibrosis type and heart failure at this point in time, defined heart failure is not diagnosed at this time (5) Hypertension: Prior to hospitalization he was treated at home with amlodipine, metoprolol, diltiazem B/P appears to be at goal for now. On diltiazem and metoprolol. 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 Diffuse interstitial lung disease noted on CT scan (7) COPD exacerbation: Bronchodilators and intravenous Solu-Medrol (8) DVT prophylaxis: Lovenox subcu resumed. stopped lovenox hold Eliane Spent 35 minutes in management of patient. \
--- NOTE | 2019-04-05 20:46 | Death Summary ---
Date of Service March 31, 2019 Pronouncement Note Date and Time of Date of : 03/31/19 Time of : 21:50 PCOD Preliminary cause of : Acute on chronic respiratory failure with hypoxia Contributing Factors (1) Interstitial lung disease: (2) Community acquired pneumonia: (3) Acute on chronic respiratory failure: (4) Atrial fibrillation with RVR: (5) Congestive heart failure: (6) Hypertension: (7) COPD exacerbation: (8) DVT prophylaxis: Summary Additional details: Above patient was admitted for acute on chronic respiratory failure and pnuemonia. Patient also has chronic interstitial lung disease. Patient developed ARDS and required to be intubated. Patient was in the ICU and required critical care consult and palliative care. Patient was successfully extubated, but continued to require high amounts of oxygen. Patient's goal was to be transitioned to home hospice, however, he continued to require high flow oxygen during the past week. Ultimately, patient decided to be transitioned to hospice, was agreeable.. During rounds today, patient was comfortable and not in any distress. During the evening, at 21:50, patient was found by nursing staff to have no pulse, no respiratory breaths, pupils fixed. Additional Data Confirmation of : no pulse Family: contacted Attending/PCP notified?: Yes Attending physician: Felix Loo Was code activated?: No Autopsy requested?: No hand cloth examiner notified?: No Advance directives: Yes
--- NOTE | 2019-04-07 11:00 | Discharge Summary ---
Date of Service April 07, 2019 Admission HPI Per Admitting Provider 73-year-old male with COPD, chronic respiratory failure, pulmonary fibrosis who was hospitalized at [facility] on December 20 with what appears to be bilateral pneumonia, acute on chronic respiratory failure, atrial fibrillation with rapid ventricular rate. He was cardioverted after DERICK procedure and is now in normal sinus rhythm. He is taking oral diltiazem and metoprolol to maintain normal sinus rhythm. He has been placed on Eliquis which will be discontinued at this time since he may need bronchoscopy with biopsy. Chest CT scan today reveals diffuse emphysema with diffuse alveolar opacities and mediastinal adenopathy. There is no PE. He was treated at [facility] with Rocephin and azithromycin then switched today to cefepime and vancomycin. Sputum culture done at [facility] on March 19 reveals moderate gram-positive cocci in pairs, chains, clusters. Blood cultures are negative. ABG done yesterday reveals pH 7.46, PCO2 42, PO2 58, bicarb 29 on 100% oxygen. He currently is on BiPAP 10/5 at 100% oxygen flow rate with 92% oxygen saturation. 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 Diffuse interstitial lung disease noted on CT scan (2) Community acquired pneumonia: Bilateral. Treated with Rocephin and azithromycin from March 19 through admission now switched to cefepime and vancomycin. doxycycline added Sputum culture at [facility] on March 19 revealed moderate gram-positive cocci in pairs, chains, clusters. Patient continues to require high amount of oxygen. Patient is open to getting a repeat ABG, eventhough it may be painful to assess oxygen level. Patient remains on doxycycline as single agent Patient has been extubated and was weaned off bipap.. Difficulty weaning off oxygen which is a problem as patient wants to go home Currently on 55 liters Palliative care is involved. May turn to comfort if unable to wean off oxygen. Pulmonary is also consulted Update: Patient reports to palliative care team that he no longer wants any testing and understands it margaret be dificult to go home. [facility] Family is updated. Patient and are in agreement with no escalation of care. (3) Acute on chronic respiratory failure: Patient will be weaned off vent on 03/26 (4) Atrial fibrillation with RVR: Cardioverted after DERICK at [facility] and now in normal sinus rhythm. Currently on diltiazem and metoprolol to maintain normal sinus rhythm. (5) Congestive heart failure: Patient appears with crackles and x-ray changes however these appear to be more ARDS pulmonary fibrosis type and heart failure at this point in time, defined heart failure is not diagnosed at this time (6) Hypertension: Prior to hospitalization he was treated at home with amlodipine, metoprolol, diltiazem B/P appears to be at goal for now. On diltiazem and metoprolol. (7) COPD exacerbation: Bronchodilators and intravenous Solu-Medrol (8) DVT prophylaxis: Lovenox subcu resumed. stopped lovenox hold Rosannaqufernie Spent 35 minutes in management of patient. \ Discharge Plan Discharge Items Patient Disposition: Reason For Visit: ACUTE RESP FAILURE,PULMONARY FIBROSIS Admission Data Admit Date/Time: 03/22/19 17:36 Attending Provider: Felix Loo Admit Provider: Colt Cloud Primary Care Provider: Ashtyn Bose Other Providers: Colt Cloud ; Giovanni Lantigua ; Estephania Kovacs ; Neva Lantigua Jeffrey A. Service: Medical Other DC Date/Time DO NOT enter until pt leaves facility: 03/31/19 21:50
== END 2019-03-31 21:50 | disposition expired | DRG 189 ==
LOC: SUATTDRO 17:36 → 1E 17:36 → 4E 03-28 16:35